=== PATIENT | female | born 1955 | race Caucasian/White ===

== ENCOUNTER 2019-06-04 16:32 | Emergency (ER) | payer OTHER, SELFPAY ==
[2019-06-04 16:35] VITALS: BP 166/86; PULSE 87; RESP 18; TEMP 36.3; O2SAT 98; BMI 26.2
--- NOTE | 2019-06-04 16:43 | XR_ITS ---
WS: [id number] XR chest 1V portable [id number] REASON FOR EXAM: cp FINDINGS: The chest heart mediastinum are normal. No active infiltrates. No pneumonia, pleural effusion, pulmonary edema, mass effect, or pneumothorax. No osseous abnormalities are seen. The hilum and apices are normal. XR/XR chest 1V portable [id number] IMPRESSION: Negative chest for active pathology.
--- NOTE | 2019-06-04 16:43 | ECG_ITS ---
Measurements Intervals [place] Rate: 86 P: 60 MN: 194 QRS: 24 QRSD: 88 T: 60 QT: 367 QTc: 439 SINUS RHYTHM LOW QRS VOLTAGE IN PRECORDIAL LEADS [QRS DEFLECTION < 1.0 mV IN CHEST LEADS] No previous ECG available for comparison Electronically Signed On 06-05-2019 8:03:40 CDT by Mark Moon [id number]
--- NOTE | 2019-06-04 16:46 | W.ED.CHESTPA ---
Documented by User: Guerline Stapleton MD 06/04/19 17:22 HPI - Chest Pain General: Chief Complaint: Chest Pain Stated Complaint: chest pain Time Seen by Provider: 06/04/19 16:35 Source: patient Mode of arrival: ambulatory History of Present Illness: HPI narrative: 64-year-old female who is very healthy and has no previous medical problems states roughly 1 hour ago she started having palpitations in her chest along with chest pain. She states this lasted roughly 20 minutes and is since resolved. She states she had a fit bit and took her heart rate and it was in the 160s. She states she felt like her heart was in a pound out of her chest and had a sharp pain in her chest with this. She denies any history of arrhythmias in the past. She states that it stopped suddenly after roughly 20 minutes. She denies any pain currently. She denies any shortness of breath. She denies any fevers. complaint: chest pain Onset (ago): hour(s) Timing of current episode: episodic Onset: during exertion Pain location: left chest Pain radiation: none Severity: mild Quality: sharp Relieving factors: nothing Exacerbating factors: nothing Associated symptoms: Reports palpitations; Deny abdominal pain, dyspnea, fever(s), nausea or vomiting Review of Systems Const: Denies: fever, chills, body aches or change in appetite Eyes: Denies: blurry vision or eye discomfort ENMT: Denies: throat pain or dental pain Card: Reports: chest pain and palpitations Resp: Denies: shortness of breath GI: Denies: abdominal pain, nausea, vomiting or diarrhea : Denies: painful urination Musc: Denies: neck pain or back pain Skin/Breast: Denies: rash Neuro: Denies: headache Psych: Denies: depression Scott/Lymph: Denies: easy bruising All/Imm: Denies: hives PFSH ED PFSH: Social History Smoking and tobacco status: former smoker Physical Exam Const: COMMON NORMALS: no apparent distress, oriented x3 and healthy appearing HENMT: COMMON NORMALS: normocephalic and head/scalp atraumatic HEAD & SCALP: normocephalic and atraumatic Eye: COMMON NORMALS: PERRL and EOMs intact bilaterally PUPIL: Yes PERRL Neck/C-Spine: COMMON NORMALS: full ROM and supple Chest: COMMONS NORMALS: inspection of chest normal and palpation of chest normal Resp: COMMON NORMALS: normal respiratory effort, no retractions, no use of accessory muscles and clear to auscultation bilaterally AUSCULTATION: clear to auscultation bilaterally Cardio: COMMON NORMALS: regular rate, regular rhythm and no murmurs RATE: regular rate RHYTHM: regular rhythm GI: COMMON NORMALS: normal to inspection, nondistended, normoactive bowel sounds, soft to palpation, non-tender and no masses PALPATION: Yes soft Extremity: COMMON NORMALS: normal to inspection and full ROM Neuro: COMMON NORMALS: oriented x3, moves all extremities and no focal motor deficits Psych: COMMON NORMALS: mental status grossly normal, thought process normal and cooperative THOUGHT PROCESS: normal thought process Skin: COMMON NORMALS: no rashes or lesions noted and no wounds GENERAL SKIN EXAM: no rashes or lesions noted Course Vital Signs: Vital signs: Vital Signs Temperature 97.4 F L 06/04/19 16:35 Pulse Rate 77 06/04/19 20:54 Respiratory Rate 17 06/04/19 20:54 Blood Pressure 106/67 06/04/19 20:54 Pulse Oximetry 98 06/04/19 20:54 MDM - Chest Pain MDM Narrative: Medical decision making narrative: Nenita presents here with chest pain and palpitations that have since resolved. From her history sounds like she either went into SVT or paroxysmal A. fib. Patient likely converted herself. The arrhythmia likely caused her pain. Her initial EKG here is normal. We will monitor her on a pump press operator and check initial and 2-hour troponin. Patient has no risk factors for coronary disease besides age. Patient's care turned over to Dr. Mendez at this time to follow labs. Lab Data: Labs: Lab Results 06/04/19 06/04/19 06/04/19 Range/Units 17:08 17:08 17:08 WBC 4.7 (4.0-10.0) 10^3/ uL RBC 4.28 (4.1-5.3) 10^6/u L Hgb 13.9 (11.5-15.3) g/dL Hct 41.7 (37.0-47.0) % MCV 97.4 (81-99) fL MCH 32.5 (28.0-34.0) pg MCHC 33.3 (30.0-36.0) g/dL RDW 12.4 (12.1-15.1) % Plt Count 282 (130-400) 10^3/c mm MPV 9.3 (7.4-10.4) fL Neut % (Auto) 59.5 % Lymph % (Auto) 31.5 % Chase % (Auto) 6.0 % Eos % (Auto) 2.6 % Baso % (Auto) 0.2 % Neut # (Auto) 2.8 (1.8-7.7) 10^3/u L Lymph # (Auto) 1.5 (0.8-4.8) 10^3/u L Chase # (Auto) 0.3 (0.2-0.9) 10^3/u L Eos # (Auto) 0.1 (0.0-0.8) 10^3/u L Baso # (Auto) 0.0 (0.0-0.1) 10^3/u L Nucleated RBC % (a uto) 0 % Nucleated RBCs # 0.0 /100WBC D-Dimer (0-0.59) ug/mIFE U Sodium 140 (136-145) mmol/L Potassium 4.3 (3.5-5.1) mmol/L Chloride 101 (98-107) mmol/L Carbon Dioxide 27 (22-29) mmol/L Anion Gap 16.3 (5-19) BUN 17 (8-23) mg/dL Creatinine 0.7 (0.5-0.9) mg/dL GFR Calculation 84.5 L (90-130) mL/min Glucose 108 (65-115) mg/dL Calculated Osmolal ity 287 (285-295) mOsm/k g Calcium 10.1 (8.5-10.5) mg/dL Magnesium (1.7-2.3) mg/dL Total Bilirubin 0.4 (0.15-1.2) mg/dL AST 23 (0-32) U/L ALT 18 (0-33) U/L Alkaline Phosphata se 75 (35-105) IU/L Troponin T Baselin e 8 (0-10) ng/mL Troponin T 120 Min standing rock (0-10) ng/mL Delta Troponin T (0-10) ABS# Total Protein 6.8 (6.6-8.7) g/dL Albumin 4.6 (3.5-5.2) g/dL Globulin 2.2 (1.3-4.6) g/dL TSH (0.27-4.20) uIU/ mL Urine Color (Yellow) Urine Appearance (CLEAR) Urine pH (5-7) Ur Specific Gravit y (1.005-1.030) Urine Protein (Negative) Urine Glucose (UA) (Normal) Urine Ketones (Negative) Urine Blood (Negative) Urine Nitrate (Negative) Urine Bilirubin (NEGATIVE) Urine Urobilinogen (Negative) mg/dL Ur Leukocyte Sharla ase (Negative) Urine RBC (0-2) /hpf Urine WBC (0-5) /hpf Ur Squamous Epith Cells (0-5) Urine Bacteria (NONE) 06/04/19 06/04/19 06/04/19 Range/Units 17:08 17:08 17:57 WBC (4.0-10.0) 10^3/ uL RBC (4.1-5.3) 10^6/u L Hgb (11.5-15.3) g/dL Hct (37.0-47.0) % MCV (81-99) fL MCH (28.0-34.0) pg MCHC (30.0-36.0) g/dL RDW (12.1-15.1) % Plt Count (130-400) 10^3/c mm MPV (7.4-10.4) fL Neut % (Auto) % Lymph % (Auto) % Chase % (Auto) % Eos % (Auto) % Baso % (Auto) % Neut # (Auto) (1.8-7.7) 10^3/u L Lymph # (Auto) (0.8-4.8) 10^3/u L Chase # (Auto) (0.2-0.9) 10^3/u L Eos # (Auto) (0.0-0.8) 10^3/u L Baso # (Auto) (0.0-0.1) 10^3/u L Nucleated RBC % (a uto) % Nucleated RBCs # /100WBC D-Dimer <= 0.27 (0-0.59) ug/mIFE U Sodium (136-145) mmol/L Potassium (3.5-5.1) mmol/L Chloride (98-107) mmol/L Carbon Dioxide (22-29) mmol/L Anion Gap (5-19) BUN (8-23) mg/dL Creatinine (0.5-0.9) mg/dL GFR Calculation (90-130) mL/min Glucose (65-115) mg/dL Calculated Osmolal ity (285-295) mOsm/k g Calcium (8.5-10.5) mg/dL Magnesium 2.4 H (1.7-2.3) mg/dL Total Bilirubin (0.15-1.2) mg/dL AST (0-32) U/L ALT (0-33) U/L Alkaline Phosphata se (35-105) IU/L Troponin T Baselin e (0-10) ng/mL Troponin T 120 Min standing rock (0-10) ng/mL Delta Troponin T (0-10) ABS# Total Protein (6.6-8.7) g/dL Albumin (3.5-5.2) g/dL Globulin (1.3-4.6) g/dL TSH 2.61 (0.27-4.20) uIU/ mL Urine Color Straw (Yellow) Urine Appearance Clear (CLEAR) Urine pH 7 (5-7) Ur Specific Gravit y 1.005 (1.005-1.030) Urine Protein Neg (Negative) Urine Glucose (UA) Norm (Normal) Urine Ketones Negative (Negative) Urine Blood Neg (Negative) Urine Nitrate Negative (Negative) Urine Bilirubin Neg (NEGATIVE) Urine Urobilinogen Norm (Negative) mg/dL Ur Leukocyte Sharla ase Negative (Negative) Urine RBC None (0-2) /hpf Urine WBC None (0-5) /hpf Ur Squamous Epith Cells None (0-5) Urine Bacteria Trace (NONE) 06/04/19 Range/Units 19:08 WBC (4.0-10.0) 10^3/ uL RBC (4.1-5.3) 10^6/u L Hgb (11.5-15.3) g/dL Hct (37.0-47.0) % MCV (81-99) fL MCH (28.0-34.0) pg MCHC (30.0-36.0) g/dL RDW (12.1-15.1) % Plt Count (130-400) 10^3/c mm MPV (7.4-10.4) fL Neut % (Auto) % Lymph % (Auto) % Chase % (Auto) % Eos % (Auto) % Baso % (Auto) % Neut # (Auto) (1.8-7.7) 10^3/u L Lymph # (Auto) (0.8-4.8) 10^3/u L Chase # (Auto) (0.2-0.9) 10^3/u L Eos # (Auto) (0.0-0.8) 10^3/u L Baso # (Auto) (0.0-0.1) 10^3/u L Nucleated RBC % (a uto) % Nucleated RBCs # /100WBC D-Dimer (0-0.59) ug/mIFE U Sodium (136-145) mmol/L Potassium (3.5-5.1) mmol/L Chloride (98-107) mmol/L Carbon Dioxide (22-29) mmol/L Anion Gap (5-19) BUN (8-23) mg/dL Creatinine (0.5-0.9) mg/dL GFR Calculation (90-130) mL/min Glucose (65-115) mg/dL Calculated Osmolal ity (285-295) mOsm/k g Calcium (8.5-10.5) mg/dL Magnesium (1.7-2.3) mg/dL Total Bilirubin (0.15-1.2) mg/dL AST (0-32) U/L ALT (0-33) U/L Alkaline Phosphata se (35-105) IU/L Troponin T Baselin e (0-10) ng/mL Troponin T 120 Min standing rock 12.45 H (0-10) ng/mL Delta Troponin T 4.45 (0-10) ABS# Total Protein (6.6-8.7) g/dL Albumin (3.5-5.2) g/dL Globulin (1.3-4.6) g/dL TSH (0.27-4.20) uIU/ mL Urine Color (Yellow) Urine Appearance (CLEAR) Urine pH (5-7) Ur Specific Gravit y (1.005-1.030) Urine Protein (Negative) Urine Glucose (UA) (Normal) Urine Ketones (Negative) Urine Blood (Negative) Urine Nitrate (Negative) Urine Bilirubin (NEGATIVE) Urine Urobilinogen (Negative) mg/dL Ur Leukocyte Sharla ase (Negative) Urine RBC (0-2) /hpf Urine WBC (0-5) /hpf Ur Squamous Epith Cells (0-5) Urine Bacteria (NONE) Imaging Data^: CXR: Attestation: I personally reviewed and interpreted this imaging study as follows: Radiologist's impression: [address] [address] XRay Report Signed Patient: Nenita Leger Unit #: [id number] : [id number] Age/Sex: 64 / F ADM Date: 06/04/19 Loc: ER Room/Bed: Attending Dr: Ordering Provider/Ordering MD: Guerline Stapleton MD Date of Service: 06/04/19 Procedure(s): XR chest 1V portable [id number] Accession Number(s): [id number] Report Number: [id number] WS: [id number] XR chest 1V portable [id number] REASON FOR EXAM: cp FINDINGS: The chest heart mediastinum are normal. No active infiltrates. No pneumonia, pleural effusion, pulmonary edema, mass effect, or pneumothorax. No osseous abnormalities are seen. The hilum and apices are normal. EKG Data^: EKG 1: Attestation: I personally reviewed and interpreted this EKG as follows: EKG interpretation date: 06/04/19 EKG interpretation time: 16:44 Interpretation: nsr hr [address] or t wave abnormalities qrs 88 qtc 410 Discharge Plan Discharge Patient Disposition: Left Against Medical Advice Clinical Impression: Palpitations Chest pain Qualifiers: Chest pain type: unspecified Qualified Code(s): R07.9 - Chest pain, unspecified Condition: Stable Prescriptions: New aspirin 325 mg tablet,delayed release (DR/EC) 325 mg PO DAILY Qty: 30 RF: 0 No Action Multiple Vitamins Tablet See Rx Instructions .ROUTE .COMPLEX RF: 0 hydrocortisone 2.5 % cream 1 applic TOPICAL BID RF: 0 potassium gluconate 595 mg (99 mg) Tablet See Rx Instructions .ROUTE .COMPLEX RF: 0 Vitamin B-12 1 tab PO EVERY OTHER DAY RF: 0 Vitamin D3 1 tab PO DAILY RF: 0 Discharge Orders: Discharge Order (Routine); Ordered 06/04/19 Ordered By: Mariela Theodore Referrals: Cathy Meléndez MD [Physician] - 1-3 days Discharge Diet: Low Cholesterol Discharge Activity: Increase activity as tolerated Patient Instructions: Chest Pain (ED) Activity Restrictions/Additional Instructions: You're leaving AGAINST MEDICAL ADVICE and are at risk for or severe permanent disability by doing so. You are more than welcome to return at any time for recheck and for further evaluation and care suture change you change your mind. I have encouraged you and offered to admit you to the hospital for formal cardiac rule out and cardiology consultation but you have refused. If you change your mind or your symptoms return in any way you are more than welcome to return to the ER for recheck. Stand Alone Forms: Against Medical Advice Discharge Date/Time: 06/04/19 20:57 Sign Out Sign Out Data: Patient Sign Out occurred on 06/04/19 at 17:22. Patient's care was discussed, and care was transferred from to ARIAS Giang. Coding Level of Care Code ED Administrative Support Technician for Chg Fwd Exam Comprehensive Documented by User: Mariela Theodore 06/04/19 23:47 HPI - Chest Pain General: Chief Complaint: Chest Pain Stated Complaint: chest pain Time Seen by Provider: 06/04/19 16:35 [facility] ED PFS: Social History Smoking and tobacco status: former smoker Course ED course: 1899 - EKGs were reviewed with Dr. Meléndez. I expressed him my concern about the inverted T wave in V2. I reviewed the entire history and case with him. He thinks this is likely due to an incomplete right bundle branch block. Based upon this he does not feel the patient needs to be admitted for cardiac rule out or stress testing but can follow-up with him in the office for outpatient Holter monitor. Vital Signs: Vital signs: Vital Signs Temperature 97.4 F L 03/20/20 16:35 Pulse Rate 77 06/04/19 20:54 Respiratory Rate 17 06/04/19 20:54 Blood Pressure 106/67 06/04/19 20:54 Pulse Oximetry 98 06/04/19 20:54 MDM - Chest Pain MDM Narrative: Medical decision making narrative: 1800 -care assumed by me at change of shift from Dr. Stapleton. Please see his portion of this note for his history, physical exam and medical decision-making notes. Patient relates to me that she has 2 episodes the second being today of rapid onset palpitations. Symptoms lasted less than 30 minutes. They were abrupt in onset and cessation. The patient denies any other symptoms such as chest pain with exertion, dyspnea on exertion, syncope or near syncope. Her other episode she had completely worked up in [place] and no cause could be found. Patient is currently feeling much better. Initial laboratory evaluation and her initial 2 EKGs are normal. We will continue with evaluation here and I will add on a d-dimer. Patients HEART Score is a 2. 2040 -I have shared with the patient the change in her EKGs as well as her slight elevation of her troponin test. I have informed her I believe it would be safest if she stayed in the hospital for formal rule out and a cardiology consult but she declines. She states this is just like everything that happened in [place] and she feels that she will be fine at home. She understands that I have informed her a heart problem can be life-threatening and it is possible if she goes home she could ultimately but she feels comfortable doing so and would like to go home. She understands that she is welcome to return at any time. She will go ahead and take aspirin daily until she is seen by Dr. Meléndez. I did review the case again with Dr. Meléndez and he is understanding of the patient's wishes and he will work to try to see the patient on Friday for recheck. Lab Data: Attestation: I reviewed the patient's lab results. Labs: Lab Results 06/04/19 06/04/19 06/04/19 Range/Units 17:08 17:08 17:08 WBC 4.7 (4.0-10.0) 10^3/ uL RBC 4.28 (4.1-5.3) 10^6/u L Hgb 13.9 (11.5-15.3) g/dL Hct 41.7 (37.0-47.0) % MCV 97.4 (81-99) fL MCH 32.5 (28.0-34.0) pg MCHC 33.3 (30.0-36.0) g/dL RDW 12.4 (12.1-15.1) % Plt Count 282 (130-400) 10^3/c mm MPV 9.3 (7.4-10.4) fL Neut % (Auto) 59.5 % Lymph % (Auto) 31.5 % Chase % (Auto) 6.0 % Eos % (Auto) 2.6 % Baso % (Auto) 0.2 % Neut # (Auto) 2.8 (1.8-7.7) 10^3/u L Lymph # (Auto) 1.5 (0.8-4.8) 10^3/u L Chase # (Auto) 0.3 (0.2-0.9) 10^3/u L Eos # (Auto) 0.1 (0.0-0.8) 10^3/u L Baso # (Auto) 0.0 (0.0-0.1) 10^3/u L Nucleated RBC % (a uto) 0 % Nucleated RBCs # 0.0 /100WBC D-Dimer (0-0.59) ug/mIFE U Sodium 140 (136-145) mmol/L Potassium 4.3 (3.5-5.1) mmol/L Chloride 101 (98-107) mmol/L Carbon Dioxide 27 (22-29) mmol/L Anion Gap 16.3 (5-19) BUN 17 (8-23) mg/dL Creatinine 0.7 (0.5-0.9) mg/dL GFR Calculation 84.5 L (90-130) mL/min Glucose 108 (65-115) mg/dL Calculated Osmolal ity 287 (285-295) mOsm/k g Calcium 10.1 (8.5-10.5) mg/dL Magnesium (1.7-2.3) mg/dL Total Bilirubin 0.4 (0.15-1.2) mg/dL AST 23 (0-32) U/L ALT 18 (0-33) U/L Alkaline Phosphata se 75 (35-105) IU/L Troponin T Baselin e 8 (0-10) ng/mL Troponin T 120 Min standing rock (0-10) ng/mL Delta Troponin T (0-10) ABS# Total Protein 6.8 (6.6-8.7) g/dL Albumin 4.6 (3.5-5.2) g/dL Globulin 2.2 (1.3-4.6) g/dL TSH (0.27-4.20) uIU/ mL Urine Color (Yellow) Urine Appearance (CLEAR) Urine pH (5-7) Ur Specific Gravit y (1.005-1.030) Urine Protein (Negative) Urine Glucose (UA) (Normal) Urine Ketones (Negative) Urine Blood (Negative) Urine Nitrate (Negative) Urine Bilirubin (NEGATIVE) Urine Urobilinogen (Negative) mg/dL Ur Leukocyte Sharla ase (Negative) Urine RBC (0-2) /hpf Urine WBC (0-5) /hpf Ur Squamous Epith Cells (0-5) Urine Bacteria (NONE) 06/04/19 06/04/19 06/04/19 Range/Units 17:08 17:08 17:57 WBC (4.0-10.0) 10^3/ uL RBC (4.1-5.3) 10^6/u L Hgb (11.5-15.3) g/dL Hct (37.0-47.0) % MCV (81-99) fL MCH (28.0-34.0) pg MCHC (30.0-36.0) g/dL RDW (12.1-15.1) % Plt Count (130-400) 10^3/c mm MPV (7.4-10.4) fL Neut % (Auto) % Lymph % (Auto) % Chase % (Auto) % Eos % (Auto) % Baso % (Auto) % Neut # (Auto) (1.8-7.7) 10^3/u L Lymph # (Auto) (0.8-4.8) 10^3/u L Chase # (Auto) (0.2-0.9) 10^3/u L Eos # (Auto) (0.0-0.8) 10^3/u L Baso # (Auto) (0.0-0.1) 10^3/u L Nucleated RBC % (a uto) % Nucleated RBCs # /100WBC D-Dimer <= 0.27 (0-0.59) ug/mIFE U Sodium (136-145) mmol/L Potassium (3.5-5.1) mmol/L Chloride (98-107) mmol/L Carbon Dioxide (22-29) mmol/L Anion Gap (5-19) BUN (8-23) mg/dL Creatinine (0.5-0.9) mg/dL GFR Calculation (90-130) mL/min Glucose (65-115) mg/dL Calculated Osmolal ity (285-295) mOsm/k g Calcium (8.5-10.5) mg/dL Magnesium 2.4 H (1.7-2.3) mg/dL Total Bilirubin (0.15-1.2) mg/dL AST (0-32) U/L ALT (0-33) U/L Alkaline Phosphata se (35-105) IU/L Troponin T Baselin e (0-10) ng/mL Troponin T 120 Min standing rock (0-10) ng/mL Delta Troponin T (0-10) ABS# Total Protein (6.6-8.7) g/dL Albumin (3.5-5.2) g/dL Globulin (1.3-4.6) g/dL TSH 2.61 (0.27-4.20) uIU/ mL Urine Color Straw (Yellow) Urine Appearance Clear (CLEAR) Urine pH 7 (5-7) Ur Specific Gravit y 1.005 (1.005-1.030) Urine Protein Neg (Negative) Urine Glucose (UA) Norm (Normal) Urine Ketones Negative (Negative) Urine Blood Neg (Negative) Urine Nitrate Negative (Negative) Urine Bilirubin Neg (NEGATIVE) Urine Urobilinogen Norm (Negative) mg/dL Ur Leukocyte Sharla ase Negative (Negative) Urine RBC None (0-2) /hpf Urine WBC None (0-5) /hpf Ur Squamous Epith Cells None (0-5) Urine Bacteria Trace (NONE) 06/04/19 Range/Units 19:08 WBC (4.0-10.0) 10^3/ uL RBC (4.1-5.3) 10^6/u L Hgb (11.5-15.3) g/dL Hct (37.0-47.0) % MCV (81-99) fL MCH (28.0-34.0) pg MCHC (30.0-36.0) g/dL RDW (12.1-15.1) % Plt Count (130-400) 10^3/c mm MPV (7.4-10.4) fL Neut % (Auto) % Lymph % (Auto) % Chase % (Auto) % Eos % (Auto) % Baso % (Auto) % Neut # (Auto) (1.8-7.7) 10^3/u L Lymph # (Auto) (0.8-4.8) 10^3/u L Chase # (Auto) (0.2-0.9) 10^3/u L Eos # (Auto) (0.0-0.8) 10^3/u L Baso # (Auto) (0.0-0.1) 10^3/u L Nucleated RBC % (a uto) % Nucleated RBCs # /100WBC D-Dimer (0-0.59) ug/mIFE U Sodium (136-145) mmol/L Potassium (3.5-5.1) mmol/L Chloride (98-107) mmol/L Carbon Dioxide (22-29) mmol/L Anion Gap (5-19) BUN (8-23) mg/dL Creatinine (0.5-0.9) mg/dL GFR Calculation (90-130) mL/min Glucose (65-115) mg/dL Calculated Osmolal ity (285-295) mOsm/k g Calcium (8.5-10.5) mg/dL Magnesium (1.7-2.3) mg/dL Total Bilirubin (0.15-1.2) mg/dL AST (0-32) U/L ALT (0-33) U/L Alkaline Phosphata se (35-105) IU/L Troponin T Baselin e (0-10) ng/mL Troponin T 120 Min standing rock 12.45 H (0-10) ng/mL Delta Troponin T 4.45 (0-10) ABS# Total Protein (6.6-8.7) g/dL Albumin (3.5-5.2) g/dL Globulin (1.3-4.6) g/dL TSH (0.27-4.20) uIU/ mL Urine Color (Yellow) Urine Appearance (CLEAR) Urine pH (5-7) Ur Specific Gravit y (1.005-1.030) Urine Protein (Negative) Urine Glucose (UA) (Normal) Urine Ketones (Negative) Urine Blood (Negative) Urine Nitrate (Negative) Urine Bilirubin (NEGATIVE) Urine Urobilinogen (Negative) mg/dL Ur Leukocyte Sharla ase (Negative) Urine RBC (0-2) /hpf Urine WBC (0-5) /hpf Ur Squamous Epith Cells (0-5) Urine Bacteria (NONE) Imaging Data^: CXR: My impression: No acute cardiopulmonary findings. EKG Data^: EKG 1: Attestation: I personally reviewed and interpreted this EKG as follows: EKG interpretation date: 06/04/19 EKG interpretation time: 16:44 Interpretation: Normal sinus rhythm 86 beats a minute, normal intervals, no blocks, no acute ST-T wave changes. EKG 2: Attestation: I personally reviewed and interpreted this EKG as follows: EKG interpretation date: 06/04/19 EKG interpretation time: 16:50 Interpretation: Normal sinus rhythm at 76 beats a minute, no acute ST or T wave changes. EKG 3: Attestation: I personally reviewed and interpreted this EKG as follows: EKG interpretation date: 06/04/19 EKG interpretation time: 18:47 Interpretation: Normal sinus rhythm at 65 beats a minute, normal intervals, no blocks, no acute ST-T wave changes. Incomplete right bundle branch block. Discharge Plan Discharge Patient Disposition: Left Against Medical Advice Clinical Impression: Palpitations Chest pain Qualifiers: Chest pain type: unspecified Qualified Code(s): R07.9 - Chest pain, unspecified Condition: Stable Prescriptions: New aspirin 325 mg tablet,delayed release (DR/EC) 325 mg PO DAILY Qty: 30 RF: 0 No Action Multiple Vitamins Tablet See Rx Instructions .ROUTE .COMPLEX RF: 0 hydrocortisone 2.5 % cream 1 applic TOPICAL BID RF: 0 potassium gluconate 595 mg (99 mg) Tablet See Rx Instructions .ROUTE .COMPLEX RF: 0 Vitamin B-12 1 tab PO EVERY OTHER DAY RF: 0 Vitamin D3 1 tab PO DAILY RF: 0 Discharge Orders: Discharge Order (Routine); Ordered 06/04/19 Ordered By: Mariela Theodore Referrals: Cathy Meléndez MD [Physician] - 1-3 days Discharge Diet: Low Cholesterol Discharge Activity: Increase activity as tolerated Patient Instructions: Chest Pain (ED) Activity Restrictions/Additional Instructions: You're leaving AGAINST MEDICAL ADVICE and are at risk for or severe permanent disability by doing so. You are more than welcome to return at any time for recheck and for further evaluation and care suture change you change your mind. I have encouraged you and offered to admit you to the hospital for formal cardiac rule out and cardiology consultation but you have refused. If you change your mind or your symptoms return in any way you are more than welcome to return to the ER for recheck. Stand Alone Forms: Against Medical Advice Discharge Date/Time: 06/04/19 20:57 Sign Out Sign Out Data: Patient Sign Out occurred on 06/04/19 at 17:22. Patient's care was discussed, and care was transferred from to ARIAS Giang. Coding Level of Care Code ED Administrative Support Technician for Chg Fwd Exam Comprehensive
[2019-06-04 17:24] LABS: Basophils % 0.2 %; Eosinophils # 0.1 10^3/uL (0.0-0.8); Eosinophils % 2.6 %; Hematocrit 41.7 % (37.0-47.0); Hemoglobin 13.9 g/dL (11.5-15.3); Lymphocytes # 1.5 10^3/uL (0.8-4.8); Lymphocytes % 31.5 %; Mean Corpuscular HGB Conc 33.3 g/dL (30.0-36.0); Mean Corpuscular Hemoglobin 32.5 pg (28.0-34.0); Mean Corpuscular Volume 97.4 fL (81-99); Mean Platelet Volume 9.3 fL (7.4-10.4); Monocytes # 0.3 10^3/uL (0.2-0.9); Neutrophils # 2.8 10^3/uL (1.8-7.7); Neutrophils % 59.5 %; Nucleated Red Blood Cells % 0 %; Platelet Count 282 10^3/cmm (130-400); Red Blood Count 4.28 10^6/uL (4.1-5.3); Red Cell Distribution Width 12.4 % (12.1-15.1); White Blood Count 4.7 10^3/uL (4.0-10.0)
[2019-06-04 17:49] LABS: Troponin(5th) Baseline 8 ng/mL (0-10)
[2019-06-04 18:01] LABS: Alanine Aminotransferase 18 U/L (0-33); Albumin Level 4.6 g/dL (3.5-5.2); Alkaline Phosphatase 75 IU/L (35-105); Anion Gap 16.3 (5-19); Aspartate Amino Transferase 23 U/L (0-32); Blood Urea Nitrogen 17 mg/dL (8-23); Calcium 10.1 mg/dL (8.5-10.5); Carbon Dioxide 27 mmol/L (22-29); Chloride 101 mmol/L (98-107); Globulin 2.2 g/dL (1.3-4.6); Glomerular Filtration Rate 84.5 mL/min (90-130); Glucose 108 mg/dL (65-115); Osmolality Calculated 287 mOsm/kg (285-295); Potassium 4.3 mmol/L (3.5-5.1); Sodium 140 mmol/L (136-145); Total Bilirubin 0.4 mg/dL (0.15-1.2); Total Protein 6.8 g/dL (6.6-8.7)
[2019-06-04 18:41] LABS: Magnesium 2.4 mg/dL (1.7-2.3); Thyroid Stimulating Hormone 2.61 uIU/mL (0.27-4.20)
--- NOTE | 2019-06-04 18:43 | ECG_ITS ---
Measurements Intervals Arabi Rate: 65 P: 58 IL: 198 QRS: 8 QRSD: 98 T: 40 QT: 397 QTc: 415 SINUS RHYTHM POSSIBLE LEFT ATRIAL ENLARGEMENT [-0.1mV P WAVE IN V1/V2] LOW QRS VOLTAGE IN PRECORDIAL LEADS [QRS DEFLECTION < 1.0 mV IN CHEST LEADS] No previous ECG available for comparison Electronically Signed On 06-05-2019 8:10:49 CDT by Mark Moon [email or web address]
[2019-06-04 18:44] LABS: Bilirubin Urine Neg (NEGATIVE); Blood Urine Neg (Negative); Glucose Urine UA Norm (Normal); Ketones Urine Negative (Negative); Leukocyte Esterase Urine Negative (Negative); Nitrate Urine Negative (Negative); Protein Urine Neg (Negative); Specific Gravity, Urine 1.005 (1.005-1.030); Urine Appearance Clear (CLEAR); Urine Color Straw (Yellow); Urobilinogen Urine Norm (Negative); pH Urine 7 (5-7)
[2019-06-04 18:47] LABS: D Dimer <= 0.27 ug/mIFEU (0-0.59)
[2019-06-04 18:58] LABS: Add Urine Culture? No; Bacteria Urine TRACE
[2019-06-04 20:13] LABS: Troponin 5 2HR 12.45 ng/mL (0-10); Troponin 5 2HR Delta 4.45 ABS# (0-10)
[2019-06-04] MEDS: aspirin 325 mg Tablet PO (20:43)
[2019-06-04 20:54] VITALS: BP 106/67; PULSE 77; RESP 17; O2SAT 98
== END 2019-06-04 20:57 | disposition left against medical advice (07) ==
PROVIDERS: Emergency Medicine; Emergency Provider Emergency Medicine
DX: R00.2 Palpitations (principal); R07.9 Chest pain, unspecified; Z87.891 Personal history of nicotine dependence; Z53.29 Procedure and treatment not carried out because of patient's decision for other reasons
CPT/HCPCS: 12345; 36415; 71045; 80053; 81001; 83735; 84443; 84484; 85025; 85378; 93005; 93010; 99282; 99284; A9270

== ENCOUNTER 2019-08-26 14:47 | Observation (INO) | payer OTHER, SELFPAY ==
[2019-08-26 15:00] VITALS: BP 117/82; PULSE 82; RESP 14; TEMP 36.8; O2SAT 97; BMI 26.1
--- NOTE | 2019-08-26 15:04 | XR_ITS ---
WS: [id number] Right shoulder, 3 views, 08/26/2019 Clinical Data: FALL Comparison: None. Findings: There is a fracture of the humeral neck with a medial dislocation of the humeral shaft. There is rota tion of the humeral head although it still remains within the glenoid fossa. There is a large distanc e between the acromion and humeral head which may represent blood in the joint space. XR/XR shoulder RT min 2V* [id number] Impression: Fracture of the right humeral neck with a comminuted component involving the la teral aspect of the right humeral head.
--- NOTE | 2019-08-26 16:38 | ED_ITS ---
Documented by User: ARIAS Cain 08/27/19 19:44 HPI - Fall General: Chief Complaint: Fall Stated Complaint: r arm pain Time Seen by Provider: 08/26/19 16:17 Source: patient Mode of arrival: ambulatory Limitations: no limitations History of Present Illness: HPI Narrative: Patient is a 64-year-old female who presents to ED today with complaints of right shoulder pain after falling off of a horse while riding trails. Patient denies any other injury sustained during the fall. She denies numbness, tingling, changes of sensation to the right upp er extremity. Patient has been ambulating without difficulty since the event. Denies striking her head, LOC, neck or back pain. MD complaint: fall Onset (ago): hour(s) Fall from: other (off horse) Fall witnessed: yes, by bystander Place fall occurred: other (outdoors/horse trails ) Loss of consciousness: None Prolonged down time: no Symptoms prior to fall: none Location of injury - extremities: Right: shoulder Associated symptoms-after fall: Denies abdominal pain, chest pain or neck pain Review of Systems Eyes: Denies: change in vision, blurry vision, floaters or seeing flashes Card: Denies: chest pain Resp: Denies: dyspnea GI: Denies: abdominal pain Musc: Reports: joint pain (R shoulder) and joint swelling (R shoulder ); Denies: neck pain, back pain, extremity pain or extremity swelling Neuro: Denies: numbness in extremities or sensory changes PFS ED PFSH: Surgical History (Updated 08/26/19 @ 18:33 by Simon Hall MD) History of appendectomy Family History (Updated 06/08/19 @ 11:09 by Shiloh Esquivel MD) Father Hypertension Stroke Aortic aneurysm Family/Other CAD (coronary artery disease), Onset Age: 53 massive heart attack Hypertension Social History (Updated 08/26/19 @ 18:33 by iSmon Hall MD) Smoking and tobacco status: never smoked Alcohol intake: current Alcohol intake frequency: holidays/special occasions only Substance/Drug Use: never Physical Exam Const: COMMON NORMALS: no acute distress, average body habitus, patient oriented x3, no limitations, healthy appearing, alert and well nourished ORIENTATION/CONSCIOUSNESS: Yes oriented to person, Yes oriented to place and Yes oriented to time HENMT: COMMON NORMALS: normocephalic and atraumatic HEAD & SCALP: normal to inspection, normocephalic and atraumatic Neck/C-Spine: COMMON NORMALS: full ROM CERVICAL SPINE: Yes cervical ROM normal, No pain with cervical ROM and No Cervical spine tenderness Chest: COMMONS NORMALS: normal inspection of the chest and normal palpation of entire chest wall Back/Pelvis: COMMON NORMALS: thoracic and lumbar spine normal to inspection, no thoracic nor lumbar tenderness and thoraco-lumbar ROM normal Extremity: GENERAL: Yes normal exam except as noted OTHER: obvious deformity and swelling noted to R shoulder joint; limited ROM due to pain; pt is NV intact Neuro: EDYTA COMA SCALE: document GCS findings Edyta coma scale eye openin g: Spontaneous Edyta coma scale verbal response: Orientated [place] coma scale motor response: Obey commands Edyta coma scale total score: 15 COMMON NORMALS: patient oriented x3, no sensory deficits noted and gait normal SENSORIUM/ORIENTATION: Yes alert, Yes oriented to person, Yes oriented to place and Yes oriented to time Skin: COMMON NORMALS: no rashes or lesions noted GENERAL SKIN EXAM: no rashes or lesions noted Course Consultations: Consultation #1: Dr. Lpóez-currently in OR but stated he will pull up films and call back recommends CT scan with 3D reconstruction and admit to hospitalist and he will take to OR tomorrow Vital Signs: Vital signs: Vital Signs Temperature 97.5 F L 08/27/19 17:55 Pulse Rate 68 08/27/19 19:22 Respiratory Rate 16 08/27/19 18:28 Blood Pressure 151/77 08/27/19 19:22 Pulse Oximetry 97 08/27/19 19:22 MDM - Fall MDM Narrative: Medical decision making narrative: Spoke to Dr. Rodriguez about patient and he will speak to hospitalist for admission. Imaging Data^: R shoulder XR: Radiologist's impression: [address] [place] [address] XRay Report Signed Patient: Nenita Leger Unit #: [id number] : [id number] Age/Sex: 64 / F ADM Date: 08/26/19 Loc: ER Room/Bed: Attending Dr: Ordering Provider/Ordering MD: Radha Rodrigeuz MD, [facility] [place] Date of Service: 08/26/19 Procedure(s): XR shoulder RT min 2V* [id number] Accession Number(s): [id number] Report Number: [id number] WS: [id number] Right shoulder, 3 views, 08/26/2019 Clinical Data: FALL Comparison: None. Findings: There is a fracture of the humeral neck with a medial dislocation of the humeral shaft. There is rotation of the humeral head although it still remains within the glenoid fossa. There is a large distance between the acromion and humeral head which may represent blood in the joint space. XR/XR shoulder RT min 2V* [id number] Impression: Fracture of the right humeral neck with a comminuted component involving the lateral aspect of the right humeral head. Dictated By: Verena Alexander MD Signed By: Verena Alexander MD Signed Date/Time: 08/26/191538 DD/ 37 Discharge Plan Discharge Patient Disposition: Admitted As Inpatient Admit Provider: Simon Hall Clinical Impression: Fracture of neck of humerus Qualifiers: Encounter type: initial encounter Fracture type: closed Laterality: right Qualified Code(s): S42.211A - Unspecified displaced fracture of surgical neck of right humerus, initial encounter for closed fracture Condition: Stable Discharge Date/Time: 08/26/19 20:19 Sign Out Sign Out Data: Patient Sign Out occurred on 08/26/19 at 18:24. Patient's care was discussed, and care was transferred from to Mariela Theodore. Coding Level of Care Code ED Inspector Casing for Chg Fwd Exam Comprehensive Documented by User: Mariela Theodore 08/27/19 05:55 HPI - Fall General: Chief Complaint: Fall Stated Complaint: r arm pain Time Seen by Provider: 08/26/19 16:17 PFSH ED PFSH: Surgical History (Updated 08/26/19 @ 18:33 by Simon Hall MD) History of appendectomy Family History (Updated 06/08/19 @ 11:09 by Shiloh Esquivel MD) Father Hypertension Stroke Aortic aneurysm Family/Other CAD (coronary artery disease), Onset Age: 53 massive heart attack Hypertension Social History (Updated 08/26/19 @ 18:33 by Simon Hall MD) Smoking and tobacco status: never smoked Alcohol intake: current Alcohol intake frequency: holidays/special occasions only Substance/Drug Use: never Course Vital Signs: Vital signs: Vital Signs Temperature 97.5 F L 08/27/19 17:55 Pulse Rate 68 08/27/19 19:22 Respiratory Rate 16 08/27/19 18:28 Blood Pressure 151/77 08/27/19 19:22 Pulse Oximetry 97 08/27/19 19:22 Discharge Plan Discharge Patient Disposition: Admitted As Inpatient Admit Provider: Simon Hall Clinical Impression: Fracture of neck of humerus Qualifiers: Encounter type: initial encounter Fracture type: closed Laterality: right Qualified Code(s): S42.211A - Unspecified displaced fracture of surgical neck of right humerus, initial encounter for closed fracture Condition: Stable Discharge Date/Time: 08/26/19 20:19 Sign Out Sign Out Data: Patient Sign Out occurred on 08/26/19 at 18:24. Patient's care was discussed, and care was transferred from to Mariela Theodore. Coding Level of Care Code ED Inspector Casing for [place] Fwd Exam Comprehensive
[2019-08-26] MEDS: ondansetron 2 mg/ML SDV 2 mL 4 MG IM (17:06)
[2019-08-26] MEDS: morphine 4 mg/mL SDV 1 mL IM (17:07)
[2019-08-26 17:11] VITALS: BP 113/76; PULSE 66; O2SAT 100
--- NOTE | 2019-08-26 17:36 | CTR_ITS ---
PROCEDURE INFORMATION: Exam: CT Right Upper Extremity Without Contrast, Shoulder Exam date and time: 08/26/2019 6:02 PM Age: 64 years old Clinical indication: Injury or trauma; Initial encounter; Blunt trauma (contusions or hematomas; Shoulder and arm, upper; Right; Patient HX: Fell off a horse R humerus FX; Additional info: Fracture/trauma; 3d reconstruction TECHNIQUE: Imaging protocol: CT of the Right upper extremity without contrast was performed. Exam focused on the shoulder. Radiation optimization: All CT scans at this facility use at least one of these dose optimization techniques: automated exposure control; mA and/or kV adjustment per patient size (includes targeted exams where dose is matched to clinical indication); or iterative reconstruction. COMPARISON: No relevant prior studies available. RADIATION DOSE METRICS: Total DLP: 1293.44 mGy-cm FINDINGS: Bones/joints: There is a transverse fracture of the surgical neck of the right humerus with some anterior displacement of the shaft by approximately half its with and some posterior angulation of the humeral head. Fracture also partly involves the greater tuberosity. Glenohumeral joint is intact and there is no fracture involving the scapula or glenoid. Right clavicle is also intact. Soft tissues: Normal. Lungs: There are some calcified granulomas in the right upper lobe in keeping with old granulomatous disease. CT/CT shoulder RT wo con* [id number] IMPRESSION: Fracture of the neck of right humerus. Radiation Dose CTDIVOL = (mGy): DLP = 1293.44 (mGy-cm)
--- NOTE | 2019-08-26 18:31 | PM.HP ---
Providers/Chief Complaint Admitting Physician: Simon Hall MD Chief Complaint: r arm pain History of Present Illness Nenita Leger is a 64 year old female with a past medical history of SVT, who presents [facility] after a fall from a horse and right shoulder pain. Patient states that she is from [place], she moved down to [place] a few years ago with friends, she is retired, enjoys riding horses, enjoys the outdoors, has done outdoorsy activities such as walking [employer] [place], is quite physically active, denies chest pain, denies shortness of breath, denies history of pulmonary embolism, denies a history of DVT, denies any history of issues with anesthesia, denies any recent travel, no exposure to COVID-19, no cough, no fevers, denies history of heart failure, denies history of renal failure, denies history of hypertension, denies history of diabetes In the ER patient was found to have a right humeral fracture, hospitalist team was consulted for medical management Review of Systems Const: Denies: fever(s), chills, fatigue or malaise Eyes: Denies: change in vision or blurry vision ENMT: Denies: nasal congestion Resp: Denies: dyspnea, productive cough, non-productive cough or wheezing GI: Denies: abdominal pain, nausea, vomiting, hematemesis, diarrhea, constipation, hematochezia or melena : Denies: flank pain, dysuria or urinary frequency Musc: Denies: neck pain or back pain Skin/Breast: Denies: rash Neuro: Denies: headache(s), dizziness or vertigo Psych: Denies: anxiety or depression Endo: Denies: polyuria or polydipsia Medications/Allergies Home Medications Medication Instructions Recorded Confirmed Last Taken Type multivitamin [Multiple Vitamins] See Rx Instructions .ROUTE .COMPLEX 06/04/19 08/26/19 08/26/19 History Soy Isoflavones 1 tab PO EVERY OTHER DAY 08/26/19 08/26/19 Unknown History cholecalciferol (vitamin D3) 50 mcg PO DAILY 08/26/19 08/26/19 Unknown History [Vitamin D3] Allergies Allergy/AdvReac Type Severity Reaction Status Date / Time Tetracyclines Allergy ADR-Gastrointestinal Verified 06/04/19 16:44 Upset PFSH Acute PFSH: Surgical History (Updated 08/26/19 @ 18:33 by Simon Hall MD) History of appendectomy Family History (Updated 06/08/19 @ 11:09 by Shiloh Esquivel MD) Father Hypertension Stroke Aortic aneurysm Family/Other CAD (coronary artery disease), Onset Age: 53 massive heart attack Hypertension Social History (Updated 08/26/19 @ 18:33 by Simon Hall MD) Smoking and tobacco status: never smoked Alcohol intake: current Alcohol intake frequency: holidays/special occasions only Substance/Drug Use: never Vitals/I&O/Wt Last Vital Signs Temp 98.2 F 08/26/19 15:00 Pulse 66 08/26/19 17:11 Resp 14 08/26/19 15:00 BP 113/76 08/26/19 17:11 Pulse Ox 100 08/26/19 17:11 Weight last 48 hrs Weight 71.214 kg Physical Exam Narrative: EXAM NARRATIVE: Right arm in sling Const: COMMON NORMALS: no acute distress and patient oriented x3 GENERAL APPEARANCE: cooperative and comfortable HENMT: COMMON NORMALS: normocephalic HEAD & SCALP: normocephalic Eye: COMMON NORMALS: Equal, round and reactive pupils present, EOMs intact bilaterally and no papilledema GENERAL EYE: appearance normal, both eyes and all related structures PUPIL: Yes Equal, round and reactive pupils present DIRECT OPHTHALMOSCOPY: Yes no papilledema Neck/C-Spine: COMMON NORMALS: full ROM, no lymphadenopathy, no JVD and Thyroid normal THYROID: Thyroid normal Lymph: LYMPHATIC: no lymphadenopathy noted Resp: COMMON NORMALS: normal respiratory effort, No retractions, No use of accessory muscles and clear to auscultation bilaterally AUSCULTATION: clear to auscultation bilaterally Cardio: COMMON NORMALS: no JVD, regular rate, regular rhythm, S1 normal heart sound present, S2 normal heart sound present, No gallops present (Cardio), No clicks present (Cardio) and No murmurs present (Cardio) RATE: regular rate RHYTHM: regular rhythm HEART SOUNDS: S1 normal heart sound present and S2 normal heart sound present GI: COMMON NORMALS: Normal to inspection, nondistended, normoactive bowel sounds present, Soft to palpation, non-tender and No hepatosplenomegaly present PALPATION: Yes Soft to palpation and Yes No hepatosplenomegaly present Extremity: COMMON NORMALS: normal to inspection, full ROM and no pedal edema Neuro: COMMON NORMALS: patient oriented x3, CN's II-XII intact bilaterally, moves all extremities and no focal motor deficits Psych: COMMON NORMALS: mental status grossly normal, Normal thought process present and cooperative THOUGHT PROCESS: Normal thought process present A&P Assessment and plan (1) Fracture of neck of humerus: -We will get preop CBC, CMP, mag, phos, INR, EKG, chest x-ray -No significant cardiac history except history of SVT, for SVT she is conservatively managed through Dr. Alex, last episode was 06/08/2019, no chest pain, no palpitations, no history of CAD, no history of heart failure, no history of CKD, no history of COPD, no history of diabetes, no history of hypertension, no history of issues with anesthesia -No recent fevers, chills, no cough, no sick contacts -N.p.o. 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
[2019-08-26 19:11] VITALS: BP 109/66; PULSE 70; RESP 16; O2SAT 99
[2019-08-26 20:00] VITALS: BP 109/66; PULSE 70; RESP 18; O2SAT 99
[2019-08-26 20:32] VITALS: BP 102/64; PULSE 62; RESP 17; TEMP 36.3; O2SAT 96
--- NOTE | 2019-08-26 20:32 | XR_ITS ---
WS: [id number] PORTABLE CHEST HISTORY: preop COMPARISON: 06/04/2019 Benign granuloma RIGHT upper lobe. Lungs are clear. Normal vasculature. No pleural effusion or pneumo thorax. Cardiac size: Normal. Mediastinum/Aorta: Normal mediastinum. Acute fracture involving the RIGHT humeral neck with medial displacement by 1.5 cm. XR/XR chest 1V portable [id number] IMPRESSION: 1. Unremarkable chest. 2. Acute RIGHT humeral neck fracture with medial displacement.
[2019-08-26 21:13] VITALS: RESP 16
[2019-08-26] MEDS: morphine 4 mg/mL SDV 1 mL IVP (21:13)
[2019-08-26] MEDS: heparin 5,000 unit/mL INJ 1 mL 5000 UNIT SUBCUT (21:14)
--- NOTE | 2019-08-26 21:14 | P.CONIM_ITS ---
Providers/Reason For Consult Consulting Physican/Specialty*: Abhijeet López D.O. Orthopedic surgery Reason for Consult*: right proximal humeral fracture Attending Physician: Simon Hall MD History of Present Illness History of Present Illness Nenita Legre is a 64 year old female who had the misfortune of falling off her horse today sustaining injury to her right shoulder. She was evaluated in the emergency room and found to have a displaced two-part proximal humeral fracture. Orthopedic consultation was requested. No complaints of other injuries other than her right shoulder. No complaints of numbness or weakness in her right hand. Review of Systems Const: Denies: fever(s) or chills Card: Denies: chest pain, palpitations or syncope Resp: Denies: dyspnea, productive cough or non-productive cough GI: Denies: abdominal pain, nausea or vomiting Musc: Reports: joint pain (right shoulder) Neuro: Denies: numbness in extremities or weakness in extremities Meds/Allergies Home Medications and Allergies Home Medications Medication Instructions Recorded Confirmed Last Taken Type multivitamin [Multiple Vitamins] See Rx Instructions .ROUTE .COMPLEX 06/04/19 08/26/19 08/26/19 History Soy Isoflavones 1 tab PO EVERY OTHER DAY 08/26/19 08/26/19 Unknown History cholecalciferol (vitamin D3) 50 mcg PO DAILY 08/26/19 08/26/19 Unknown History [Vitamin D3] Allergies Allergy/AdvReac Type Severity Reaction Status Date / Time Tetracyclines Allergy ADR-Gastrointestinal Verified 06/04/19 16:44 Upset Current Medications Current Medications Generic Name Dose Route Start Last Admin Trade Name Freq PRN Reason Stop Dose Admin Morphine Sulfate 2 - 4 mg 08/26/19 20:54 08/26/19 21:13 Morphine IVP 2 mg Q4H PRN Administration SEVERE PAIN PFSH Acute PFSH: Surgical History (Updated 08/26/19 @ 18:33 by Simon Hall MD) History of appendectomy Family History (Updated 06/08/19 @ 11:09 by Shiloh Esquivel MD) Father Hypertension Stroke Aortic aneurysm Family/Other CAD (coronary artery disease), Onset Age: 53 massive heart attack Hypertension Social History (Updated 08/26/19 @ 18:33 by Simon Hall MD) Smoking and tobacco status: never smoked Alcohol intake: current Alcohol intake frequency: holidays/special occasions only Substance/Drug Use: never Vitals/I&O/Wt Last Vital Signs Temp 97.4 F L 08/26/19 20:32 Pulse 62 08/26/19 20:32 Resp 16 08/26/19 21:13 BP 102/64 08/26/19 20:32 Pulse Ox 96 08/26/19 20:32 Weight last 48 hrs Weight 157 lb Physical Exam Narrative: EXAM NARRATIVE: 64-year-old white female in no acute distress. She is wearing a sling immobilizing her right upper extremity. Skin is intact overlying the right shoulder. Digits are sensate of the right hand with normal capillary refill handgrip is normal. Head is normocephalic atraumatic. Sclerae anicteric. Pupils are equal and round. Lungs are clear to auscultation. No wheezes rales or crackles noted. Heart is regular rate rhythm without murmur or jugular venous distention. Abdomen is soft and nontender. A&P Assessment and plan (1) Fracture of neck of humerus: 64-year-old white female with a displaced two-part fracture of the right proximal humerus. Treatment options were discussed with the patient. Displaced nature of her fracture was recommended she undergo open reduction internal fixation. Risks, benefits and potential complications of surgery were discussed with the patient to include but are not limited to loss of reduction potential complications from hardware, avascular necrosis, nerve/blood vessel/tendon injury, decreased range of motion postoperatively compared to her preoperative range of motion. Patient's questions were answered to her satisfaction. She is agreeable to be admitted with surgery planned for tomorrow on 08/27/2019 when OR is available. Status: Acute Qualifiers: Encounter type: initial encounter Fracture type: closed Laterality: right Qualified Code(s): S42.211A - Unspecified displaced fracture of surgical neck of right humerus, initial encounter for closed fracture Consult Attestations Medical Necessity Statement: patient's care will require 2 overnight stays Time Spent in Patient Care: 16 - 35 minutes (>than 50% of time spent in counselling and/or direct pt care on unit) . 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
[2019-08-26 21:33] LABS: Thyroid Stimulating Hormone 1.89 uIU/mL (0.27-4.20)
--- NOTE | 2019-08-26 22:27 | PC.NURSE ---
ADMIT NOTE NOTED PT TO HAVE RIGHT ARM IN SLING
[2019-08-27] VITALS (22 sets, daily range): BP systolic 91–156; BP diastolic 50–85; PULSE 61–90; RESP 13–20; TEMP 36.1–36.8; O2SAT 94–100
--- NOTE | 2019-08-27 | XR_ITS ---
WS: [id number] XR shoulder RT min 2V* [id number] REASON FOR EXAM: OR PICS FINDINGS: Internal fixation changes are noted in the surgical neck fracture of the right humerus a pl ate with 8 screws is seen in good position. XR/XR shoulder RT min 2V* [id number] IMPRESSION: Satisfactory aligned and immobilized fracture of the proximal right humerus.
--- NOTE | 2019-08-27 | SCC_ITS ---
Procedure Done: open reduction internal fixation right proximal humeral fracture with plate and screws 46.4 seconds of fluoroscopic guidance, for a cumulative dose of 1.20 mGy, was provided to Dr. López by the radiology department. C-arm images of the RIGHT shoulder were saved for the patient's permanent record. [facility]
[2019-08-27 02:52] LABS: Basophils % 0.5 %; Eosinophils # 0.1 10^3/uL (0.0-0.8); Eosinophils % 0.8 %; Hematocrit 32.7 % (37.0-47.0); Hemoglobin 10.9 g/dL (11.5-15.3); Lymphocytes # 1.6 10^3/uL (0.8-4.8); Mean Corpuscular HGB Conc 33.3 g/dL (30.0-36.0); Mean Corpuscular Hemoglobin 33.4 pg (28.0-34.0); Mean Corpuscular Volume 100.3 fL (81-99); Mean Platelet Volume 9.2 fL (7.4-10.4); Monocytes # 0.5 10^3/uL (0.2-0.9); Monocytes % 8.6 %; Neutrophils # 4.1 10^3/uL (1.8-7.7); Neutrophils % 64.8 %; Nucleated Red Blood Cells % 0 %; Platelet Count 220 10^3/cmm (130-400); Red Blood Count 3.26 10^6/uL (4.1-5.3); Red Cell Distribution Width 12.4 % (12.1-15.1); White Blood Count 6.3 10^3/uL (4.0-10.0)
[2019-08-27 03:05] LABS: INR 0.97 (0.8-1.2)
[2019-08-27 03:10] LABS: Alanine Aminotransferase 20 U/L (0-33); Albumin Level 3.8 g/dL (3.5-5.2); Alkaline Phosphatase 52 IU/L (35-105); Aspartate Amino Transferase 27 U/L (0-32); Blood Urea Nitrogen 18 mg/dL (8-23); Calcium 9.2 mg/dL (8.5-10.5); Carbon Dioxide 26 mmol/L (22-29); Chloride 101 mmol/L (98-107); Globulin 2.3 g/dL (1.3-4.6); Glomerular Filtration Rate 63.2 mL/min (90-130); Glucose 129 mg/dL (65-115); Magnesium 2.2 mg/dL (1.7-2.3); Osmolality Calculated 286 mOsm/kg (285-295); Phosphorus 5.1 mg/dL (2.5-4.5); Sodium 139 mmol/L (136-145); Total Bilirubin 0.5 mg/dL (0.15-1.2); Total Protein 6.1 g/dL (6.6-8.7)
[2019-08-27] MEDS: morphine 4 mg/mL SDV 1 mL IVP ×3 (03:44→13:28)
[2019-08-27 04:17] LABS: Estmated Average Glucose 94; Hemoglobin A1C 4.9 % (4.0-6.0)
[2019-08-27] MEDS: heparin 5,000 unit/mL INJ 1 mL 5000 UNIT SUBCUT (08:21)
--- NOTE | 2019-08-27 09:46 | PC.CHAP ---
Pastoral Care Encounter/Spiritual Assessment Type of Contact [] Declined medicine technologist visit [] Patient/Family/Request visit [] Outpatient visit [] Follow-up visit [] Physician referral [] Code/Alert [x] Routine visit [] Staff referral [] Actively dying [] Patient sleeping [] Family support [] [] Out of room [] Palliative care [] [] Receiving care in room [] Pre-surgical visit [] Trauma [] Long length of stay [] ICU visit [] Other: Relational/Emotional Strength [] Patient feels connected with others/family/visitors/staff [] Distress [] Loneliness/isolation [] Abandonment Spirituality of Patient [] Person of Jazmin [] Attends Holiness of their Jazmin [] Believes in Prayer [] Reads Bible or Restoration materials [] There are Spiritual issues to be addressed 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 [x] Prayer [] Active listening [] Non-anxious presence [] Spiritual/emotional support [] Crisis/trauma care [] Spiritual counseling [] Bereavement support [] Provided bereavement packet [] Provided Bible/devotional materials [] Provided toy/stuffed animal, coloring book to patient or family member [] Provided Communion [] Anointing/[place] [] Salvation [x] Completed spiritual assessment [] Other: Impact on Illness or Injury [] Angry [] Fearful [] Anxious [] Often cries [] Exhaustion [] Unable to work [] Unable to attend gnosticist [] Unable to walk/stand [] Unable to read [] Unable to drive [] Unable to eat/drink [] Unable to sleep [] Unable to be with family [] Patient intubated [] Other: Summary Patient fell from horse. Scheduled for surgery Time spent with patient 10 min
--- NOTE | 2019-08-27 13:42 | P.OP_ITS ---
Operative Report Date of procedure: August 27, 2019 Pre-op Diagnosis: closed, displaced two-part right proximal humeral fracture Post-op diagnosis: same Post-op Findings: mild comminution noted but overall patient has a two-part right proximal humeral fracture. Procedure Done: open reduction internal fixation right proximal humeral fracture with plate and screws Implants: Paige proximal humeral locking plate and screws Pathology: none sent Surgeon: Abhijeet López Anesthesia: General Estimated blood loss (mL): 100 Complications: no apparent complications Findings: images show satisfactory reduction of proximal humeral fracture fracture with appropriate positioning of implants (plate and screws) Condition: stable Disposition: same day Brief History: 64-year-old white female who fell from a horse sustaining a two- part displaced fracture of her right proximal humerus. Risks, benefits and potential complications of surgery discussed with the patient. Risks include aren't limited to loss reduction cut out of implants possible collapse of the hu meral head avascular necrosis. She is wear that she may require other surgeries to either remove or modify hardware later date. Other medical complications can include wound healing complications such as infection hematoma nerve/blood vessel/tendon injury. Also there is potential risk for blood clots, heart attack, stroke risk up to including . All questions were answered patient agreeable to proceed with surgery. Procedure: 2 g Ancef Patient identified. Surgical site was signed. Surgical permit was signed. The patient received 2 g of Ancef intravenously for surgical prophylaxis. She was taken to the operating room. She was transferred to the operating room table. She is placed under general anesthesia without difficulty. The patient was then positioned in the beachchair positioner. She was sterilely prepped and draped usual fashion. A timeout was performed. Using a marking pen we marked out our bony landmarks. Using a skin knife and incision is made at the inferior border of the clavicle lateral to the coracoid process extending to the upper arm. Incisions proximally 15 cm in length. Full-thickness skin flaps were made and skin edge bleeders were treated with electrocautery. We undermined skin edges with the Metzenbaum scissors. Soft tissue traction placed the wound. We then developed the deltotrapezial pectoral interval. We swept the deltoid laterally. Fracture hematoma was encountered this was suctioned. Identified or long head of the biceps tendon. The humeral head was posterior compared to proximal shaft. With traction were able to disengage the impacted fracture. Fracture hematoma was removed from the fracture site. Using a Davison elevator as a shoehorn were able to with traction reduce the proximal humeral shaft in relationship to the humeral head and widening the bicipital groove. A Paige proximal humeral locking plate was then positioned and held in place using K wires. Fluoroscopic imaging was used to verify appropriate placement of the plate with regards to its height in order to prevent impingement. Was found to be appropriate. A cortical screw was then placed in the shaft to compress the plate down to bone. A series of locking screws were placed proximally using fluoroscopy to verify appropriate length and also to keep the screws within the humeral head. Distal locking screws were placed in the shaft. Fluoroscopic imaging demonstrated satisfactory reduction of the fracture and placement of implants with no evidence of screws going through the humeral head are going into the joint line. The wounds irrigated with Betadine-containing saline solution and antibiotic containing saline solution. Deltopectoral interval was loosely closed with 0 Vicryl suture subcutaneous closure with 2-0 undyed Vicryl followed by a running 3-0 Monocryl subcuticular suture. Dermabond Steri-Strips were applied. The incision was injected with 20 mL of a one-to-one mixture 1% lidocaine and half percent Marcaine with epinephrine. Sterile dressings were applied. The patient is placed in a sling. She was aroused from general anesthesia. She was taken to recovery room. She tolerated surgery well. All counts are correct.
--- NOTE | 2019-08-27 15:05 | ANES.PREANE2 ---
Pre-Anesthetic Assessment Pre-Anesthetic Assessment: Height/Weight: Height 1.65 m Weight 71.214 kg Temp Pulse Resp BP Pulse Ox 97.7 F 61 16 147/58 96 08/27/19 14:50 08/27/19 14:50 08/27/19 14:50 08/27/19 14:50 08/27/19 14:50 Preop Diagnosis: closed, displaced two-part right proximal humeral fracture Proposed Procedure: Operation Date: 08/27/19 15:35 Proposed Procedures p ORIF Proximal Humerus(Right) - Abhijeet López, DO Was Beta Rajinder taken within 24 hours: N/A Last intake: Intake Last Liquid Date 08/27/19 Last Liquid Time 05:00 Last Solid Date 08/26/19 Last Solid Time 22:30 Social: Social History: Alcohol and No tobacco Exam: Pre-Anes Outpt Exam: alert, oriented x 3, clear to auscultation bilaterally and regular rate & rhythm Airway: Submandibular: WNL Cervical ROM: WNL MP: 2 Dentition: Full History/ROS: No significant history except as noted and No significant complaints Pulmonary: Pulmonary: None reported CV/HEM: CV/HEM: None reported : : None reported Hepatic: Hepatic: None reported GI: GI: None reported Metabolic: Metabolic: None reported Musc/skel: Musc/skel: None reported Neuropsych: Neuropsych: None reported Anesthetic Plan: ASA status: 2 Anesthesia: General Risk of > 500 ml blood loss (7ml/kg in children): No Meds/Allergies Current Medications: Current Medications Generic Name Dose Route Start Last Admin Trade Name Freq PRN Reason Stop Dose Admin Heparin Sodium (Be ef Lung) 5,000 unit 08/26/19 20:32 08/27/19 08:21 Heparin SUBCUT 5,000 unit Q8H MARIANGEL Administration Morphine Sulfate 2 - 4 mg 08/26/19 20:54 08/27/19 13:28 Morphine IVP 4 mg Q4H PRN Administration SEVERE PAIN PFSH Anesthesia PFSH: Surgical History (Updated 08/26/19 @ 18:33 by Simon Hall MD) History of appendectomy Family History (Updated 06/08/19 @ 11:09 by Shiloh Esquivel MD) Father Hypertension Stroke Aortic aneurysm Family/Other CAD (coronary artery disease), Onset Age: 53 massive heart attack Hypertension Social History (Updated 08/26/19 @ 18:33 by Simon Hall MD) Smoking and tobacco status: never smoked Alcohol intake: current Alcohol intake frequency: holidays/special occasions only Substance/Drug Use: never Data Anesthesia CBC & Chem 7: 08/27/19 02:40 08/27/19 02:40 Other Labs: Laboratory Results - last 48 hr 08/26/19 08/27/19 08/27/19 20:45 02:40 02:40 WBC RBC Hgb Hct MCV MCH MCHC RDW Plt Count MPV Neut % (Auto) Lymph % (Auto) [place] % (Auto) Eos % (Auto) Baso % (Auto) Neut # (Auto) Lymph # (Auto) [place] # (Auto) Eos # (Auto) Baso # (Auto) Nucleated RBC % (auto) Nucleated RBCs # PT 13.20 INR 0.97 Sodium 139 Potassium 4.0 Chloride 101 Carbon Dioxide 26 Anion Gap 16.0 BUN 18 Creatinine 0.9 GFR Calculation 63.2 L Glucose 129 H Estimat Average Glucose Hemoglobin A1c Calculated Osmolality 286 Calcium 9.2 Phosphorus 5.1 H Magnesium 2.2 Total Bilirubin 0.5 AST 27 ALT 20 Alkaline Phosphatase 52 Total Protein 6.1 L Albumin 3.8 Globulin 2.3 TSH 1.89 08/27/19 08/27/19 02:40 02:40 WBC 6.3 RBC 3.26 L Hgb 10.9 L Hct 32.7 L MCV 100.3 H MCH 33.4 MCHC 33.3 RDW 12.4 Plt Count 220 MPV 9.2 Neut % (Auto) 64.8 Lymph % (Auto) 25.0 [place] % (Auto) 8.6 Eos % (Auto) 0.8 Baso % (Auto) 0.5 Neut # (Auto) 4.1 Lymph # (Auto) 1.6 [place] # (Auto) 0.5 Eos # (Auto) 0.1 Baso # (Auto) 0.0 Nucleated RBC % (auto) 0 Nucleated RBCs # 0.0 PT INR Sodium Potassium Chloride Carbon Dioxide Anion Gap BUN Creatinine GFR Calculation Glucose Estimat Average Glucose 94 Hemoglobin A1c 4.9 Calculated Osmolality Calcium Phosphorus Magnesium Total Bilirubin AST ALT Alkaline Phosphatase Total Protein Albumin Globulin TSH Cardiac Studies: No Data to Display
[2019-08-27] MEDS: sodium chloride 0.9% 1,000 ML 30 ML IV (15:08)
--- NOTE | 2019-08-27 16:18 | SUR.OPER ---
1605 CALLED 2N TO RETRIEVE PT'S FRIENDS (Mckenzie) PHONE NUMBER. SENIOR [employer] NET DEVELOPER STATED THAT NO NUMBERS ARE AVAILABLE FOR PT. LOOKED AT CHART AND NO NUMBERS EXCEPT HUSBANDS. LEFT A VOICE MAIL ON 'S PHONE AT 1620
--- NOTE | 2019-08-27 16:43 | PM.PN ---
Subjective Subjective: Interval history: This morning patient has no significant complaints, is waiting for her surgery, has no significant complaints, no fevers, no chills, no nausea, no vomiting Vitals/I&O/Wt Last Vital Signs Temp 97.7 F 08/27/19 14:50 Pulse 61 08/27/19 14:50 Resp 16 08/27/19 14:50 BP 147/58 08/27/19 14:50 Pulse Ox 96 08/27/19 14:50 08/27/19 08/27/19 08/27/19 06:59 14:59 22:59 Intake Total 360 / 360 Balance 360 / 360 Weight last 48 hrs Weight 71.214 kg Physical Exam Narrative: EXAM NARRATIVE: Right arm in sling Const: COMMON NORMALS: no acute distress and patient oriented x3 GENERAL APPEARANCE: cooperative and comfortable HENMT: COMMON NORMALS: normocephalic HEAD & SCALP: normocephalic Neck/C-Spine: COMMON NORMALS: full ROM, no lymphadenopathy, no JVD and Thyroid normal THYROID: Thyroid normal Lymph: LYMPHATIC: no lymphadenopathy noted Resp: COMMON NORMALS: normal respiratory effort, No retractions, No use of accessory muscles and clear to auscultation bilaterally AUSCULTATION: clear to auscultation bilaterally Cardio: COMMON NORMALS: no JVD, regular rate, regular rhythm, S1 normal heart sound present, S2 normal heart sound present, No gallops present (Cardio), No clicks present (Cardio) and No murmurs present (Cardio) RATE: regular rate RHYTHM: regular rhythm HEART SOUNDS: S1 normal heart sound present and S2 normal heart sound present GI: COMMON NORMALS: Normal to inspection, nondistended, normoactive bowel sounds present, Soft to palpation, non-tender and No hepatosplenomegaly present PALPATION: Yes Soft to palpation and Yes No hepatosplenomegaly present Extremity: COMMON NORMALS: normal to inspection, full ROM and no pedal edema Neuro: COMMON NORMALS: patient oriented x3 Data : 08/27/19 02:40 08/27/19 02:40 A&P Assessment and plan (1) Fracture of neck of humerus: -No significant cardiac history except history of SVT, for SVT she is conservatively managed through Dr. Alex, last episode was 06/08/2019, no chest pain, no palpitations, no history of CAD, no history of heart failure, no history of CKD, no history of COPD, no history of diabetes, no history of hypertension, no history of issues with anesthesia -No recent fevers, chills, no cough, no sick contacts -N.p.o. currently, proceeding to surgery this afternoon -Full code, heparin for DVT prophylaxis Status: Acute Qualifiers: Encounter type: initial encounter Fracture type: closed Laterality: right Qualified Code(s): S42.211A - Unspecified displaced fracture of surgical neck of right humerus, initial encounter for closed fracture (2) SVT (supraventricular tachycardia): -Continue telemetry monitoring Status: Acute Attestations Medical Necessity Statement*: Patient requires continued hospitalization for right arm humeral fracture, Coding Level of Care Code Acute Lead Recoverer for [facility] Diagnoses Fracture of neck of humerus S42.211A Encounter type: initial encounter Fracture type: closed Laterality: right SVT (supraventricular tachycardia) I47.1
[2019-08-27] MEDS: acetaminophen 500 mg Tablet 1000 MG PO (18:28)
[2019-08-27] MEDS: iron polysaccharide complex 150 mg Capsule PO (18:28)
[2019-08-27] MEDS: oxyCODONE 5 mg IR Tab/Cap PO ×2 (18:28→22:40)
[2019-08-27] MEDS: calcium carb-vit d 600mg/400unit 1 Tablet 1 EACH PO (18:28)
[2019-08-27] MEDS: sennosides-docusate Tablet 2 TAB PO (18:28)
--- NOTE | 2019-08-27 18:39 | NUR.SHIFT ---
SHIFT SUMMARY PATIENT JUST ARRIVED FROM THE OR. DRESSING HAS MODERATE AMOUNT OF BLOOD ON IT, BUT NOT OOZING THROUGH AT THIS TIME. BP SLIGHTLY ELEVATED. PATIENT RATES PAIN 9/10. THIS NURSE ADMINISTERED SCHEDULED TYLENOL AND OXY IR 10MG. FLUIDS RUNNING. PATIENT DRINKING CLEAR LIQUIDS AT THIS TIME.
[2019-08-27] MEDS: sodium chloride 0.9% 1,000 ML 100 ML IV (20:10)
[2019-08-28] VITALS (10 sets, daily range): BP systolic 78–104; BP diastolic 42–68; PULSE 51–60; RESP 16–20; TEMP 36.5–36.7; O2SAT 96–100
[2019-08-28] MEDS: acetaminophen 500 mg Tablet 1000 MG PO ×2 (02:46→07:41)
[2019-08-28] MEDS: sodium chloride 0.9% 1,000 ML 100 ML IV (06:09)
[2019-08-28 06:25] LABS: Basophils % 0.2 %; Hematocrit 31.5 % (37.0-47.0); Lymphocytes # 0.9 10^3/uL (0.8-4.8); Lymphocytes % 13.6 %; Mean Corpuscular HGB Conc 31.7 g/dL (30.0-36.0); Mean Corpuscular Hemoglobin 33.2 pg (28.0-34.0); Mean Corpuscular Volume 104.7 fL (81-99); Mean Platelet Volume 9.6 fL (7.4-10.4); Monocytes # 0.6 10^3/uL (0.2-0.9); Monocytes % 8.6 %; Neutrophils % 77.3 %; Nucleated Red Blood Cells % 0 %; Platelet Count 203 10^3/cmm (130-400); Red Blood Count 3.01 10^6/uL (4.1-5.3); Red Cell Distribution Width 12.6 % (12.1-15.1); White Blood Count 6.4 10^3/uL (4.0-10.0)
[2019-08-28 06:43] LABS: Alanine Aminotransferase 17 U/L (0-33); Albumin Level 3.5 g/dL (3.5-5.2); Alkaline Phosphatase 51 IU/L (35-105); Anion Gap 16.6 (5-19); Aspartate Amino Transferase 22 U/L (0-32); Blood Urea Nitrogen 9 mg/dL (8-23); Carbon Dioxide 22 mmol/L (22-29); Chloride 103 mmol/L (98-107); Globulin 2.4 g/dL (1.3-4.6); Glucose 119 mg/dL (65-115); Magnesium 1.9 mg/dL (1.7-2.3); Osmolality Calculated 281 mOsm/kg (285-295); Phosphorus 4.4 mg/dL (2.5-4.5); Potassium 4.6 mmol/L (3.5-5.1); Sodium 137 mmol/L (136-145); Total Bilirubin 0.5 mg/dL (0.15-1.2); Total Protein 5.9 g/dL (6.6-8.7)
[2019-08-28] MEDS: multivitamin therapeutic Tablet 1 TAB PO (07:41)
[2019-08-28] MEDS: calcium carb-vit d 600mg/400unit 1 Tablet 1 EACH PO (07:41)
[2019-08-28] MEDS: cholecalciferol (vitamin D3) 1,000 unit Tablet 1000 UNIT PO (07:41)
[2019-08-28] MEDS: sennosides-docusate Tablet 2 TAB PO (07:41)
[2019-08-28] MEDS: iron polysaccharide complex 150 mg Capsule PO (07:41)
--- NOTE | 2019-08-28 08:48 | PM.PN ---
Subjective Subjective: Interval history: 64-year-old white female postoperative day 1 status post ORIF two-part right proximal humeral fracture. she states her pain is controlled. She denies paresthesias or weakness of her right hand. Should like to be discharged home Vitals/I&O/Wt Last Vital Signs Temp 97.7 F 08/28/19 07:33 Pulse 58 L 08/28/19 07:33 Resp 18 08/28/19 07:33 BP 96/67 08/28/19 07:33 Pulse Ox 99 08/28/19 07:33 08/27/19 08/28/19 08/28/19 22:59 06:59 14:59 Intake Total 1300 / 1660 2678.333 / 4338.333 960 / 960 Output Total 100 / 100 Balance 1200 / 1560 2678.333 / 4238.333 960 / 960 Weight last 48 hrs Weight 157 lb Physical Exam Narrative: EXAM NARRATIVE: 64-year-old white female in no acute distress. She is alert and cooperative. Her dressing was changed incision was intact a new dressing was applied there is no evidence of infection. She has swelling in the distal arm which is to be anticipated following her fracture and surgery. Handgrip is strong digits are sensate the right upper extremity. Lungs are clear to auscultation heart is regular rate rhythm no calf tenderness. Intraoperative fluoroscopic images showed satisfactory placement of plate and screws with improved alignment of the two-part right proximal humeral fracture. Data : 08/28/19 06:09 08/28/19 06:09 A&P Assessment and plan (1) Postoperative state: Dressing was changed today. Patient's finish postoperative antibiotics. She will be discharged to home today. She was instructed on pendulum exercises as well as range of motion of her elbow to prevent stiffness. Prescription for Percocet 07/17/2024 one by mouth every 4 hours. Pain dispense #40 was provided September [address] López for follow-up appointment repeat radiographs to be taken at that time of the right shoulder Status: Acute (2) History of fracture of right shoulder: Status: Resolved Attestations Medical Necessity Statement*: patient ready for discharge to home Time Spent in Patient Care: 16 - 35 minutes (>than 50% of time spent in counselling and/or direct pt care on unit). Coding Level of Care Code Acute University Demonstrator for [facility] Diagnoses Postoperative state Z98.890 History of fracture of right shoulder Z87.81
[2019-08-28] MEDS: oxyCODONE 5 mg IR Tab/Cap PO (09:12)
--- NOTE | 2019-08-28 11:43 | P.DS_ITS ---
Discharge Providers Date of Admission: 08/26/19 17:53 Date of Discharge: August 28, 2019 Attending Provider at Admission: Simon Hall MD Attending Provider at Discharge: Simon Hall MD Diagnoses at Discharge Discharge Diagnosis (1) History of fracture of right shoulder: Status: Acute Reason for Visit Reason for Visit: r arm pain Hospital Course Discharge Summary: This is a 64-year-old female with a past medical history of SVT who presents to [facility] after a fall sustaining a right fracture of the humerus. Patient received open reduction internal fixation right proximal humeral fracture with plate and screws, by Dr. López, tolerated surgical procedure well, discharged home with physical therapy, pain control, and instructions to follow-up with Dr. López as outpatient. Physical Exam Const: COMMON NORMALS: no acute distress and patient oriented x3 HENMT: COMMON NORMALS: normocephalic HEAD & SCALP: normocephalic Neck/C-Spine: COMMON NORMALS: no JVD Resp: COMMON NORMALS: normal respiratory effort, No retractions, No use of accessory muscles and clear to auscultation bilaterally AUSCULTATION: clear to auscultation bilaterally Cardio: COMMON NORMALS: no JVD, regular rate, regular rhythm, S1 normal heart sound present and S2 normal heart sound present RATE: regular rate RHYTHM: regular rhythm HEART SOUNDS: S1 normal heart sound present and S2 normal heart sound present GI: COMMON NORMALS: Normal to inspection, nondistended, normoactive bowel sounds present, Soft to palpation, non-tender, No hepatosplenomegaly present, no masses and no bruits PALPATION: Yes Soft to palpation and Yes No hepatosplenomegaly present Extremity: COMMON NORMALS: capillary refill normal, no clubbing, cyanosis or edema, no calf tenderness and no pedal edema Neuro: COMMON NORMALS: patient oriented x3 Psych: COMMON NORMALS: mental status grossly normal Discharge Data Data Completed and Pending: Completed Studies During Hospitalization Category Date Time Status CT shoulder RT wo con* [id number] Urgent Cat Scan 08/26/19 17:36 Completed XR chest 1V kika ble [id number] Routine Exams 08/26/19 20:32 Completed XR shoulder RT mi n 2V* [id number] Stat Exams 08/26/19 15:04 Completed Pending at discharge Category Date Time Status C-arm Fluoroscopy [id number] Routine Exams 08/27/19 15:17 Taken Complete Blood Co unt w/Auto AM LABS Lab 08/29/19 04:00 Ordered Complete Blood Co unt w/Auto AM LABS Lab 08/30/19 04:00 Ordered Comprehensive Met abolic Panel AM LA BS Lab 08/29/19 04:00 Ordered Magnesium AM LABS Lab 08/29/19 04:00 Ordered Phosphorus AM LAB S Lab 08/29/19 04:00 Ordered Labs from last 24 hours 08/28/19 08/28/19 06:09 06:09 WBC 6.4 RBC 3.01 L Hgb 10.0 L Hct 31.5 L MCV 104.7 H MCH 33.2 MCHC 31.7 RDW 12.6 Plt Count 203 MPV 9.6 Neut % (Auto) 77.3 Lymph % (Auto) 13.6 [place] % (Auto) 8.6 Eos % (Auto) 0.0 Baso % (Auto) 0.2 Neut # (Auto) 5.0 Lymph # (Auto) 0.9 [place] # (Auto) 0.6 Eos # (Auto) 0.0 Baso # (Auto) 0.0 Nucleated RBC % (a uto) 0 Nucleated RBCs # 0.0 Sodium 137 Potassium 4.6 Chloride 103 Carbon Dioxide 22 Anion Gap 16.6 BUN 9 Creatinine 0.6 GFR Calculation 101.0 Glucose 119 H Calculated Osmolal ity 281 L Calcium 9.0 Phosphorus 4.4 Magnesium 1.9 Total Bilirubin 0.5 AST 22 ALT 17 Alkaline Phosphata se 51 Total Protein 5.9 L Albumin 3.5 Globulin 2.4 Vitals: Last Vital Signs Temp 97.8 F 08/28/19 11:24 Pulse 59 L 08/28/19 11:24 Resp 20 H 08/28/19 11:24 BP 103/66 08/28/19 11:24 Pulse Ox 100 08/28/19 11:24 Discharge Plan Discharge Patient Disposition: Home, Self-Care Condition: Stable Prescriptions: New oxycodone-acetaminophen 5-325 mg tablet 1 tab PO Q4H PRN (Reason: pain) Qty: 30 RF: 0 Continued multivitamin [Multiple Vitamins] Tablet See Rx Instructions .ROUTE .COMPLEX RF: 0 Vitamin D3 50 mcg (2,000 unit) Capsule 50 mcg PO DAILY RF: 0 Soy Isoflavones 1 tab PO EVERY OTHER DAY RF: 0 Discharge Orders: Discharge Order (Routine); Ordered 08/28/19 Ordered By: Simon Hall Referrals: Abhijeet López DO [Physician] - 2 weeks (I should be in the office on either the or 09 September follow-up visit can be performed either 1 of those days when I am in the office-Dr. López) Discharge Diet: Regular Discharge Activity: Limit activity as instructed Activity Restrictions/Additional Instructions: May remove dressings in 48 hours May shower at that time. If there is additional drainage may apply a light dressing to the area Skin is covered with skin glue and Steri-Strips so no dressing is required if there is no drainage Use sling for comfort Come out of sling 3-4 times a day to move wrist elbow and to perform pendulum exercises. With arm held at the side you may use your right upper extremity for activities of daily living such as eating. If not too painful you may attempt to do activities such as brushing her teeth or combing her hair with your right hand. May use her right upper extremity to eat again if not too painful Apply ice to affected shoulder 20 minutes on 20 minutes off to decrease pain and swelling Discharge Attestations Time Spent in Discharge Care*: less than 30 min Quality Metrics Clinical Quality Measures During this hospital stay, did patient experience: None Coding Level of Care Code Acute Patient Care Provider for [facility] Diagnoses History of fracture of right shoulder Z87.81
== END 2019-08-28 12:47 | disposition home or self-care (01) ==
LOC: ER 17:38 → MEDSURG 18:15
PROVIDERS: Family Medicine; Orthopaedic Surgery; Admitting Provider Family Medicine; Visit Provider Family Medicine
PROC: (CPT 23615; principal; 2019-08-27 15:35)
DX: S42.211A Unspecified displaced fracture of surgical neck of right humerus, initial encounter for closed fracture (principal); X58.XXXA Exposure to other specified factors, initial encounter; Z87.81 Personal history of (healed) traumatic fracture; Z98.890 Other specified postprocedural states; I47.1 Supraventricular tachycardia; Z82.49 Family history of ischemic heart disease and other diseases of the circulatory system; Z83.3 Family history of diabetes mellitus
CPT/HCPCS: 23615; 12345; 29240; 36415; 71045; 73030; 73200; 76000; 80053; 83036; 83735; 84100; 84443; 85025; 85610; 94664; 96372; 96374; 96375; 97110; 97161; 97165; 99283; 99285; C1713; G0378; J0131; J0690; J1100; J1580; J1644; J2001; J2270; J2405; J2704; J3010; J3490; J7030

== ENCOUNTER → 2019-09-10 08:01 | Outpatient (BNVA) | payer OTHER, SELFPAY | PROVIDERS: Visit Provider Orthopaedic Surgery | DX: Z98.890 Other specified postprocedural states (principal); Z87.81 Personal history of (healed) traumatic fracture | CPT/HCPCS: 73030 ==

== ENCOUNTER → 2019-10-06 08:57 | Outpatient (BNVA) | payer OTHER, SELFPAY | PROVIDERS: Visit Provider Orthopaedic Surgery | DX: S42.211D Unspecified displaced fracture of surgical neck of right humerus, subsequent encounter for fracture with routine healing (principal); Z98.890 Other specified postprocedural states; X58.XXXD Exposure to other specified factors, subsequent encounter | CPT/HCPCS: 73030 ==

== ENCOUNTER 2019-10-14 08:34 | Outpatient (RCR) | payer OTHER, SELFPAY | END 2019-10-15 23:59 | disposition home or self-care (01) | LOC: SPT 08:34 | PROVIDERS: Referring Provider Orthopaedic Surgery; Visit Provider Orthopaedic Surgery | DX: Z47.89 Encounter for other orthopedic aftercare (principal); S42.201D Unspecified fracture of upper end of right humerus, subsequent encounter for fracture with routine healing; X58.XXXD Exposure to other specified factors, subsequent encounter | CPT/HCPCS: 97161 ==

== ENCOUNTER 2019-10-16 06:00 | Outpatient (RCR) | payer OTHER, SELFPAY | END 2019-11-15 23:59 | disposition home or self-care (01) | LOC: SPT 06:00 | PROVIDERS: Referring Provider Orthopaedic Surgery; Visit Provider Orthopaedic Surgery | DX: Z47.89 Encounter for other orthopedic aftercare (principal); S42.201D Unspecified fracture of upper end of right humerus, subsequent encounter for fracture with routine healing; X58.XXXD Exposure to other specified factors, subsequent encounter | CPT/HCPCS: 97110 ==

== ENCOUNTER 2019-11-16 06:00 | Outpatient (RCR) | payer OTHER, SELFPAY | END 2019-12-15 23:59 | disposition home or self-care (01) | LOC: SPT 06:00 | PROVIDERS: Referring Provider Orthopaedic Surgery; Visit Provider Orthopaedic Surgery | DX: Z47.89 Encounter for other orthopedic aftercare (principal); S42.201D Unspecified fracture of upper end of right humerus, subsequent encounter for fracture with routine healing; X58.XXXD Exposure to other specified factors, subsequent encounter | CPT/HCPCS: 97110 ==

== ENCOUNTER → 2019-11-24 10:37 | Outpatient (BNVA) | payer OTHER, SELFPAY | PROVIDERS: Visit Provider Specialist | DX: Z98.890 Other specified postprocedural states (principal); Z87.81 Personal history of (healed) traumatic fracture | CPT/HCPCS: 73030 ==

== ENCOUNTER → 2020-07-17 15:26 | Outpatient (BNVA) | payer OTHER, SELFPAY | PROVIDERS: Visit Provider Specialist | DX: Z98.890 Other specified postprocedural states (principal); Z87.81 Personal history of (healed) traumatic fracture | CPT/HCPCS: 73030 ==

== ENCOUNTER → 2021-03-26 14:21 | Outpatient (BNVA) | payer MEDICARE, SELFPAY | PROVIDERS: Visit Provider Specialist | DX: Z20.822 Contact with and (suspected) exposure to COVID-19 (principal); Z87.81 Personal history of (healed) traumatic fracture; Z01.812 Encounter for preprocedural laboratory examination; T84.84XA Pain due to internal orthopedic prosthetic devices, implants and grafts, initial encounter; S42.291D Other displaced fracture of upper end of right humerus, subsequent encounter for fracture with routine healing; X58.XXXD Exposure to other specified factors, subsequent encounter | CPT/HCPCS: 73030; 87635 ==

== ENCOUNTER → 2021-03-27 09:31 | Outpatient (BNVA) | payer MEDICARE, SELFPAY | PROVIDERS: Visit Provider Family Medicine | DX: Z13.6 Encounter for screening for cardiovascular disorders (principal) | CPT/HCPCS: 80053; 80061; 85025 ==

== ENCOUNTER → 2021-04-10 08:40 | Outpatient (BNVA) | payer MEDICARE, SELFPAY | PROVIDERS: Visit Provider Family Medicine | DX: Z01.419 Encounter for gynecological examination (general) (routine) without abnormal findings (principal) | CPT/HCPCS: 88175 ==

== ENCOUNTER 2021-04-27 08:24 | Day surgery (SDC) | payer MEDICARE, SELFPAY ==
[2021-04-26 13:26] VITALS: BMI 28.9
--- NOTE | 2021-04-27 | SCC_ITS ---
Procedure done: Removal right proximal humeral plate and 8 screws 36.9 seconds of fluoroscopic guidance, for a cumulative dose of 2.21 mGy, was provided to Dr. Whitlock by the radiology department. C-arm images of the RIGHT shoulder were saved for the patient's permanent record. ROSANA
[2021-04-27 08:37] VITALS: BP 130/80; PULSE 62; RESP 16; TEMP 36.4; O2SAT 100
[2021-04-27] MEDS: sodium chloride 0.9% 1,000 ML 30 ML IV (08:57)
[2021-04-27] MEDS: CELEcoxib 200 mg Capsule 400 MG PO (08:58)
[2021-04-27] MEDS: acetaminophen 1,000 MG/100 ML PIGGYBACK 400 MG IV (08:58)
--- NOTE | 2021-04-27 09:06 | ANES.PREANE2 ---
Pre-Anesthetic Assessment Height/Weight: Height 1.65 m Weight 78.925 kg Temp Pulse Resp BP Pulse Ox 97.5 F L 62 16 130/80 100 04/27/21 08:37 04/27/21 08:37 04/27/21 08:37 04/27/21 08:37 04/27/21 08:37 Preop Diagnosis: Painful orthopedic hardware right shoulder Operation Date: 04/27/21 09:40 Proposed Procedures p Hardware Removal Right Humerus 98145 S42.7512(Right) - Verna Whitlock MD Familial anesthetic complications: None Was Beta Rajinder taken within 24 hours: N/A Was Clonidine taken within 24 hours: N/A Last intake: Intake Last Liquid Date 04/26/21 Last Liquid Time 18:30 Last Solid Date 04/26/21 Last Solid Time 18:00 Social No alcohol and No tobacco Exam alert, oriented x 3, clear to auscultation bilaterally and regular rate & rhythm Airway Submandibular: within normal limits Cervical ROM: within normal limits Mallampati: Class II Dentition: full History/ROS No significant history except as noted Anesthetic Plan ASA status: 1 Anesthesia: General Risk of > 500 ml blood loss (7ml/kg in children): No Medications/Allergies Home Medications Medication Instructions Recorded Confirmed Last Taken Type multivitamin (Multiple Vitamins) See Rx Instructions .ROUTE .COMPLEX 06/04/19 04/27/21 04/25/21 History cholecalciferol (vitamin D3) 50 50 mcg PO DAILY 08/26/19 04/27/21 04/25/21 History mcg (2,000 unit) capsule (Vitamin D3) Lactobacillus acidophilus 10 mg PO .weekly cap 04/10/21 04/27/21 04/22/21 History (Acidophilus) ascorbic acid (vitamin C) 1,000 mg 1 g PO DAILY tab 04/10/21 04/27/21 04/25/21 History tablet zinc acetate 50 mg (zinc) capsule 50 mg PO DAILY 04/10/21 04/27/21 04/25/21 History (Galzin) Allergies Allergy/AdvReac Type Severity Reaction Status Date / Time Tetracyclines Allergy ADR-Gastrointestinal Verified 04/27/21 08:35 Upset Current Medications Generic Name Dose Route Start Last Admin Trade Name Freq PRN Reason Stop Dose Admin Sodium Chloride 1,000 mls @ 30 mls/hr 04/27/21 08:30 02/11/22 08:57 Sodium Chloride 0.9% IV 04/28/21 08:29 30 mls/hr .Q24H MARIANGEL Administration PFSH Anesthesia Medical History Closed fracture of right proximal humerus History of fracture of right shoulder Surgical History History of appendectomy Postoperative state Family History Father Hypertension Stroke Aortic aneurysm Family/Other CAD (coronary artery disease), Onset Age: 53 massive heart attack Hypertension Social History Smoking and tobacco status: never smoked Alcohol intake: current Alcohol intake frequency: holidays/special occasions only Data Anesthesia Cardiac Studies: No Data to Display
--- NOTE | 2021-04-27 09:39 | P.HPUD_ITS ---
Surgery/Procedure H&P Update DATE OF PROCEDURE: April 27, 2021 DATE H&P PERFORMED: 04/25/21 H&P UPDATE INFORMATION: I have reviewed H&P completed within last 30 days, I have examined patient prior to procedure, No changes to prior documentation and H&P is in [facility] [place] EMR on date indicated PREOP DIAGNOSIS: Painful orthopedic hardware right shoulder PLANNED PROCEDURE: Operation Date: 04/27/21 09:40 Proposed Procedures p Hardware Removal Right Humerus S42.2915(Right) - Verna Whitlock MD Related Problem List Diagnoses (1) Closed fracture of right proximal humerus: Qualifiers: Encounter type: sequela Fracture morphology: other fracture Fracture alignment: displaced Qualified Code(s): S42.291S - Other displaced fracture of upper end of right humerus, sequela (2) Painful orthopaedic hardware:
[2021-04-27 09:40] LABS: Basophils % 0.4 %; Eosinophils # 0.2 10^3/uL (0.0-0.8); Eosinophils % 2.9 %; Hematocrit 42.5 % (37.0-47.0); Hemoglobin 14.1 g/dL (11.5-15.3); Lymphocytes # 1.6 10^3/uL (0.8-4.8); Lymphocytes % 30.2 %; Mean Corpuscular HGB Conc 33.2 g/dL (30.0-36.0); Mean Corpuscular Hemoglobin 32.7 pg (28.0-34.0); Mean Corpuscular Volume 98.6 fl (81-99); Mean Platelet Volume 9.5 fL (7.4-10.4); Monocytes # 0.4 10^3/uL (0.2-0.9); Monocytes % 7.2 %; Neutrophils # 3.03 10^3/uL (1.8-7.7); Neutrophils % 59.1 %; Nucleated Red Blood Cells % 0 %; Platelet Count 337 10^3/cmm (130-400); Red Blood Count 4.31 10^6/uL (4.1-5.3); Red Cell Distribution Width 12.3 % (12.1-15.1); White Blood Count 5.1 10^3/uL (4.0-10.0)
[2021-04-27 10:10] LABS: Add Urine Microscopic? NO; Charge for UA Resulting for Rev
[2021-04-27 10:21] LABS: Bilirubin Urine Neg (Negative); Blood Urine Neg (Negative); Glucose Urine UA Norm (Normal); Ketones Urine Negative (Negative); Leukocyte Esterase Urine Negative (Negative); Nitrate Urine Negative (Negative); Protein Urine Neg (Negative); Urine Appearance Clear (CLEAR); Urine Color Straw (Yellow); Urobilinogen Urine Norm (Negative); pH Urine 7 (5-7)
[2021-04-27] MEDS: ceFAZolin 1,000 mg SDV 1000 MG IRRIGATION (11:05)
--- NOTE | 2021-04-27 11:45 | XR_ITS ---
WS: [id number] INTRAOPERATIVE TECHNIQUE: 3 Spot fluoroscopic images for intraoperative purposes. FLUOROSCOPY TIME: 36.9 seconds CLINICAL INFORMATION: OR PICS COMPARISON: March 26, 2021 FINDINGS: Hardware removal of the plate and screw fixation RIGHT humerus. Humerus appears normally aligned. Hea led fracture. No other significant findings. XR/XR shoulder RT min 2V* [id number] IMPRESSION: Images obtained for intraoperative purposes.
[2021-04-27 12:03] VITALS: BP 130/72; PULSE 69; RESP 11; TEMP 36.1; O2SAT 97
[2021-04-27 12:10] VITALS: BP 128/67; PULSE 65; RESP 14; O2SAT 100
[2021-04-27 12:14] VITALS: BP 129/68; PULSE 64; RESP 14; O2SAT 100
[2021-04-27 12:18] VITALS: BP 137/45; PULSE 62; RESP 14; TEMP 36.1; O2SAT 100
[2021-04-27 12:20] VITALS: BP 146/79; PULSE 60; RESP 15; TEMP 36.1; O2SAT 98
--- NOTE | 2021-04-27 12:28 | P.OP_ITS ---
Operative Report Date of procedure: April 27, 2021 Pre-op diagnosis: Painful orthopedic hardware right shoulder following open reduction internal fixation of a proximal humerus fracture in August 2019. Post-op diagnosis: Same Procedure done: Removal right proximal humeral plate and 8 screws Specimens removed/disposition: Plate and screws sent with patient Pathology: none sent (But cultures were obtained.) Surgeon: Verna Whitlock Supervisor [employer]: [facility] operating room technicians Anesthesia: General (Per LMA, ASA 1) Estimated blood loss (mL): 20 IV fluids (mL): 900 Urine output (mL): 0 (No Albarran) Complications: None Condition: stable Disposition: PACU (Then return to same-day surgery for discharge to home) Brief History: This 66-year-old white female who fell from a horse sustaining a two-part displaced fracture of her right proximal humerus in 08/26/19.?The patient had an open reduction internal fixation of her closed displaced 2 part right proximal humerus fracture by Dr. López on August 27, 2019. Most recently, the patient has had pain with internal and external rotation of the shoulder. She has crepitation about the hardware consistent with prominence of the hardware and aggravation from it. Patient was seen and evaluated by me, and she requested having the hardware removed. Risks and complications were discussed. Consents were signed. Procedure: The patient was brought to the operating theater and underwent general anesthesia per LMA, ASA 1. The patient was placed in a beachchair position and subsequently the right upper extremity was prepped and draped in the usual fashion utilizing DuraPrep. The arm was draped free. A surgical pause was performed prior to commencement of the surgical procedure. At the time of the surgical pause, we confirmed the site and side of surgery and preoperative surgical markingsas well as administration of appropriate preoperative antibiotics Ancef 2 g. Following the surgical pause, an incision was made through the patient's previous incision from her fracture repair. A muscle-splitting incision at the area of the patient's previous repair was accomplished. Care was taken to protect the axillary nerve through this process. The plate was palpated and identified. Of note, there was a bursa overlying the proximal aspect of the plate consistent with the patient's preoperative findings. The fluid from this was cultured. There were 8 screws in the plate which were removed. These were saved for the patient as was the plate. The plate was then elevated off the bone and was subsequently removed as well. The wound was copiously irrigated with normal saline containing Ancef. Additional irrigation was accomplished with bupivacaine plain. Following this, attention was directed to closure. 3-0 Monocryl was used to close the subcutaneous tissues followed by 4-0 Monocryl subcuticular closure. This was followed by Dermabond Prinandrew andDavid. The patient was returned to the recovery room in satisfactory condition. She was given a sling following her recovery. The patient will be discharged to home to follow-up with me in the office in as scheduled. There were no complications, but cultures were sent upon entry. Related Problem List Diagnoses (1) Closed fracture of right proximal humerus: (2) Painful orthopaedic hardware:
[2021-04-27] MEDS: HYDROcodone-acetaminophen 5-325 mg Tablet 1 TAB PO (14:03)
--- NOTE | 2021-04-27 14:18 | ANE.PACU2 ---
Inpatient post-anesthesia follow up: Airway intact: Yes Vital signs: Temperature 97.0 F Pulse Rate 60 Respiratory Rate 15 Blood Pressure 146/79 Pulse Oximetry 98 Oxygen Delivery Me thod Room Air Oxygen Flow Rate Fraction of Inspir ed Oxygen Hydration adequate: Yes Nausea and vomiting: No Pain level: 2 Mental status: Baseline
== END 2021-04-27 14:12 | disposition home or self-care (01) ==
PROVIDERS: PCP Family Medicine; Visit Provider Specialist
PROC: (CPT 20694; principal; 2021-04-27 09:40)
DX: T84.84XA Pain due to internal orthopedic prosthetic devices, implants and grafts, initial encounter (principal); Z82.49 Family history of ischemic heart disease and other diseases of the circulatory system; Z82.3 Family history of stroke
CPT/HCPCS: 20680; 73030; 76000; 81003; 85025; 87070; 87075; 87205; 96365; J0690; J1100; J1200; J2250; J2405; J2704; J3010; J3490; J7030

== ENCOUNTER → 2021-05-09 09:01 | Outpatient (BNVA) | payer MEDICARE, SELFPAY | PROVIDERS: PCP Family Medicine; Visit Provider Specialist | DX: Z47.89 Encounter for other orthopedic aftercare (principal); S42.201S Unspecified fracture of upper end of right humerus, sequela; X58.XXXS Exposure to other specified factors, sequela | CPT/HCPCS: 73030 ==

== ENCOUNTER 2021-06-12 14:00 | Outpatient (CLI) | payer MEDICARE, SELFPAY ==
--- NOTE | 2021-06-12 15:00 | MM_ITS ---
WS: [id number] BILATERAL 3D TOMOSYNTHESIS DIGITAL SCREENING MAMMOGRAPHY WITH CAD CLINICAL INFORMATION: SCREENING HISTORY: Screening mammogram. No current complaints. COMPARISON: November 04, 2019 TECHNIQUE: Bilateral CC and MLO views. FINDINGS: Scattered fibroglandular densities bilaterally. Incidental punctate calcifications. No suspicious foc al mass, asymmetry, calcifications, or architectural distortion. No evidence of malignancy. MM/[place] [id number] IMPRESSION: BI-RADS: 2-Benign FOLLOW UP: 1 Year Follow-up Recommend return to annual screening mammography.
== END 2021-06-12 14:01 | disposition home or self-care (01) ==
LOC: RAD 14:02
PROVIDERS: PCP Family Medicine; Visit Provider Family Medicine
DX: Z12.31 Encounter for screening mammogram for malignant neoplasm of breast (principal)
CPT/HCPCS: 77063; 77067

== ENCOUNTER → 2022-04-12 10:30 | Outpatient (BNVA) | payer MEDICARE, SELFPAY | PROVIDERS: PCP Family Medicine; Visit Provider Family Medicine | DX: Z13.6 Encounter for screening for cardiovascular disorders (principal); Z79.899 Other long term (current) drug therapy | CPT/HCPCS: 80053; 80061; 85025 ==

== ENCOUNTER → 2022-04-26 08:45 | Outpatient (BNVA) | payer MEDICARE, SELFPAY | PROVIDERS: PCP Family Medicine; Referring Provider Emergency Medicine; Visit Provider Otolaryngology | DX: J01.91 Acute recurrent sinusitis, unspecified (principal) | CPT/HCPCS: 99203 ==

== ENCOUNTER 2022-06-14 12:44 | Outpatient (CLI) | payer MEDICARE, SELFPAY ==
--- NOTE | 2022-06-14 13:08 | XR_ITS ---
WS: [email or web address] SCREENING DEXA SCAN [employer] CLINICAL INFORMATION: POST MENOPAUSAL COMPARISON: None. FINDINGS: The L1-L4 bone mineral density measures 0.915 g/cm2. This corresponds to a T score score of -2.2 and Z score of -0.9. Left femoral neck bone mineral density measures 0.864 g/cm2. This corresponds to a T score of -1.1 an d Z score of -0.1. Right femoral neck bone mineral density measures 0.841 g/cm2. This corresponds to a T score -1.3of an d Z score of -0.3. Mean femoral neck bone mineral density measures 0.853 g/cm2. This corresponds to a T score of -1.2 an d Z score of -0.2. XR/XR DEXA axial skeleton* [id number] IMPRESSION: Osteopenia lumbar spine. Osteopenia femoral necks. Patient's FRAX calculated 10 year probability for major osteoporotic fracture i s 29.0 % and osteoporotic hip fracture is 2.3%.
--- NOTE | 2022-06-14 13:09 | MM_ITS ---
WS: [email or web address] BILATERAL 3D TOMOSYNTHESIS DIGITAL SCREENING MAMMOGRAPHY WITH CAD CLINICAL INFORMATION: screening mammogram HISTORY: Screening mammogram. No current complaints. COMPARISON: June 12, 2021 TECHNIQUE: Bilateral CC and MLO views. FINDINGS: Scattered fibroglandular densities bilaterally. No suspicious focal mass, asymmetry, calcifications, or architectural distortion. No evidence of malignancy. Incidental punctate calcifications. MM/[place] [id number] IMPRESSION: BI-RADS: 2-Benign FOLLOW UP: 1 Year Follow-up Recommend return to annual screening mammography.
== END 2022-06-14 12:45 | disposition home or self-care (01) ==
LOC: RAD 12:47
PROVIDERS: PCP Family Medicine; Visit Provider Family Medicine
DX: Z12.31 Encounter for screening mammogram for malignant neoplasm of breast (principal); Z78.0 Asymptomatic menopausal state; M85.89 Other specified disorders of bone density and structure, multiple sites
CPT/HCPCS: 77063; 77067; 77080

== ENCOUNTER → 2023-05-09 08:44 | Outpatient (BNVA) | payer MEDICARE, SELFPAY | PROVIDERS: PCP Family Medicine; Visit Provider Family Medicine Adult Medicine | DX: R39.9 Unspecified symptoms and signs involving the genitourinary system (principal) | CPT/HCPCS: 81000 ==

== ENCOUNTER → 2023-08-19 13:15 | Outpatient (BNVA) | payer MEDICARE, SELFPAY | PROVIDERS: PCP Family Medicine; Visit Provider Nurse Practitioner Women's Health | DX: Z01.419 Encounter for gynecological examination (general) (routine) without abnormal findings (principal); M81.0 Age-related osteoporosis without current pathological fracture | CPT/HCPCS: 87624 ==

== ENCOUNTER 2023-08-22 07:34 | Outpatient (CLI) | payer MEDICARE, SELFPAY ==
--- NOTE | 2023-08-22 08:00 | MM_ITS ---
WS: [email or web address] BILATERAL SCREENING DIGITAL TOMOSYNTHESIS MAMMOGRAM WITH CAD HISTORY: Z12.31 - Encounter for screening mammogram for malignant ... COMPARISON: 06/14/2022, 06/12/2021 Bilateral CC and MLO views with tomosynthesis and synthetic mammography submitted. Computer aided det ection analyzed. Breast composition: There are scattered areas of fibroglandular density. No suspicious masses, microc alcifications or architectural distortion. MM/[place] [id number] IMPRESSION: BI-RADS: 1-Negative FOLLOW UP: 1 Year Follow-up
== END 2023-08-22 07:35 | disposition home or self-care (01) ==
LOC: RAD 07:34
PROVIDERS: PCP Family Medicine; Visit Provider Nurse Practitioner Women's Health
DX: Z12.31 Encounter for screening mammogram for malignant neoplasm of breast (principal); R92.323 Mammographic fibroglandular density, bilateral breasts
CPT/HCPCS: 77063; 77067

== ENCOUNTER → 2024-06-03 11:04 | Outpatient (BNVA) | payer MEDICARE, SELFPAY | PROVIDERS: PCP Family Medicine; Visit Provider Family Medicine | DX: R00.2 Palpitations (principal); Z13.6 Encounter for screening for cardiovascular disorders; M81.0 Age-related osteoporosis without current pathological fracture | CPT/HCPCS: 85025 ==

== ENCOUNTER → 2024-06-04 09:30 | Outpatient (BNVA) | payer MEDICARE, SELFPAY | PROVIDERS: PCP Family Medicine; Visit Provider Family Medicine | DX: Z13.6 Encounter for screening for cardiovascular disorders (principal); R00.2 Palpitations; M81.0 Age-related osteoporosis without current pathological fracture | CPT/HCPCS: 80053; 80061; 82306; 82310; 83735; 83970; 84443; 85025 ==

== ENCOUNTER 2024-08-23 09:51 | Outpatient (CLI) | payer MEDICARE, SELFPAY ==
--- NOTE | 2024-08-23 10:00 | MM_ITS ---
WS: [email or web address] SCREENING DIGITAL TOMOSYNTHESIS MAMMOGRAM WITH CAD HISTORY: screening COMPARISON: 08/22/2023, 06/14/2022 Bilateral CC and MLO with tomosynthesis views submitted. Synthetic mammography reviewed. Computer aided detection analyzed. Breast composition: There are scattered areas of fibroglandular density. No suspicious masses, microcalcifications or architectural distortion. Benign calcifications. MM/MM scr BI tomosynthesis [id number] IMPRESSION: BI-RADS: 2 - Benign. FOLLOW UP: 1 Year Follow-up
== END 2024-08-23 09:52 | disposition home or self-care (01) ==
PROVIDERS: PCP Family Medicine; Visit Provider Family Medicine
DX: Z12.31 Encounter for screening mammogram for malignant neoplasm of breast (principal); R92.323 Mammographic fibroglandular density, bilateral breasts; R92.1 Mammographic calcification found on diagnostic imaging of breast
CPT/HCPCS: 77063; 77067

== ENCOUNTER 2024-12-20 08:25 | Emergency (ER) | payer MEDICARE, SELFPAY ==
[2024-12-20 08:37] VITALS: BP 115/71; PULSE 69; RESP 16; TEMP 36.7; O2SAT 99; BMI 26.8
--- NOTE | 2024-12-20 08:46 | XR_ITS ---
WS: [email or web address] Right wrist, 4 views including scaphoid view, 12/20/2024 Clinical Data: Trauma Comparison: None. Findings: No fractures or dislocations are seen. The carpal bones are intact. There is no soft tissue swelling. The distal radius and ulna are not remarkable. Scaphoid view is normal. XR/XR wrist RT w scaphoid [id number] Impression: Negative right wrist.
--- NOTE | 2024-12-20 08:46 | W.ED.EXTPRO ---
HPI - Extremity Problem General: Chief complaint: Extremity Injury, Upper Stated complaint: recent falls, R wrist pain Time Seen by Provider: 12/20/24 08:39 History of Present Illness: 61-year-old female presents emergency room complaining of right wrist pain. She fell 1 week ago while in the garden when she stumbled had some wrist pain since then then fell again this morning in exercise class landed on an outstretched right wrist has some pain and mild swelling denies any other injury. She states her wrist has been hurting continuously since the first fall and aggravated by the second fall this morning. She has what looks like an abrasion on the left side of her forehead but states that is from a skin tag that was burned off at dermatology late last week. Related Data Home Medications ?Medication ?Instructions ?Recorded ?Confirmed Forward PO 08/19/23 08/20/24 ascorbate calcium (vitamin C) 500 500 mg PO DAILY 08/19/23 08/20/24 mg tablet ascorbic acid (vitamin C) 1,000 mg 1 g PO Q6H 08/19/23 08/20/24 capsule ivermectin 6 mg tablet 6 mg PO 08/19/23 08/20/24 quercetin 500 mg capsule 1,000 mg PO .every other day 08/19/23 08/20/24 zinc acetate 25 mg (zinc) capsule 25 mg PO DAILY 08/19/23 08/20/24 (Galzin) calcium 300 mg-D3 25 mcg-magnesium tab PO 06/03/24 08/20/24 66 mg-K2 37.5 mcg-herbal tablet (Alive Calcium-Vitamin D3-K2) multivitamin 1 tab PO DAILY 06/03/24 08/20/24 Allergies Allergy/AdvReac Type Severity Reaction Status Date / Time olive extract Allergy ADR-Abdominal Verified 08/20/24 10:04 Pain Tetracyclines Allergy ADR-Gastrointestinal Verified 08/20/24 10:04 Upset Review of Systems Musc: Reports: joint pain PFSH ED PFSH: Medical History Osteopenia determined by dual energy x-ray photon absorptiometry (DEXA) scan of forearm 3.31.23 osteopenia, does not want meds No pertinent past medical history neghx: htn,dm,thryod,dvt/pe Surgical History Hx of colonoscopy 4..2017 normal; repeat 10 yrs History of bunionectomy R little toe History of surgery on upper extremity R humerus fracture surgery History of endometrial ablation Hx of tonsillectomy History of appendectomy Family History Father Hypertension Stroke Aortic aneurysm Family/Other CAD (coronary artery disease), Onset Age: 53 massive heart attack Hypertension Denies family history of Colon cancer Ovarian cancer Prostate cancer Diabetes Heart disease Hyperlipidemia Breast cancer Uterine cancer Thyroid disease Social History Smoking and tobacco/nicotine status: former use of tobacco/nicotine Quit status (tobacco/nicotine): has quit using Year quit tobacco: in her 20s; and little Alcohol intake: current Alcohol intake frequency: 0-2 Drinks per Day Alcohol type: hard liquor Substance/Drug Use: never Household members: spouse Marital status: Number of children: 0 Highest education level completed: Associate Degree: Academic Program Current occupational status: retired 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 neurovascularly intact no deformity no crepitus no significant swelling Neuro: SENSORIUM/ORIENTATION: Yes oriented to person, Yes oriented to place and Yes oriented to time Skin: COMMON NORMALS: no rashes or lesions noted GENERAL SKIN EXAM: no rashes or lesions noted Course Vital Signs: Vital signs: Vital Signs Temperature 98.1 F 12/20/24 08:37 Pulse Rate 69 12/20/24 08:37 Respiratory Rate 16 12/20/24 08:37 Blood Pressure 115/71 12/20/24 08:37 Pulse Oximetry 99 12/20/24 08:37 Oxygen Delivery Me thod Room Air 12/20/24 08:37 MDM - Extremity (Nontraumatic) Medical Decision Making X-ray of the wrist unremarkable no acute fractures noted. Will discharge patient home ice minimal activities. Patient states she does a lot of yoga would avoid that for a few days to the wrist to improve if she has any worsening or persistent symptoms recheck with her primary care doctor can use ibuprofen Tylenol as needed. Lab Data Radiology Impressions Wrist X-Ray 12/20/24 08:46 Impression: Negative right wrist. All radiology interpretation(s) finalized by discharge Discharge Plan Discharge Patient Disposition: Home Clinical Impression: Sprain of wrist, right Condition: Stable Prescriptions: No Action Galzin 25 mg (zinc) capsule 25 mg PO DAILY ascorbate calcium (vitamin C) 500 mg tablet 500 mg PO DAILY ascorbic acid (vitamin C) 1,000 mg capsule 1 g PO Q6H ivermectin 6 mg tablet 6 mg PO Rx Instructions: first day of each month and on the 15th of the month. 3 tablets every other day Forward PO quercetin 500 mg capsule 1,000 mg PO .every other day multivitamin Tablet 1 tab PO DAILY Alive Calcium-Vitamin D3-K2 300 mg-25 mcg- 66 mg-37.5 mcg tablet PO Discharge Orders: Discharge ED (Routine); Ordered 12/20/24 Ordered By: Dk Collazo Referrals: Shama Archer MD [Primary Care Provider, Family Practice] Discharge Diet: Usual diet Discharge Activity: Resume usual activity Patient Instructions: Opioid Safety, Pain Management, Patient Portal & Candy Instructions Activity Restrictions/Additional Instructions: Thank you for choosing [facility] for your healthcare needs today. It is very important that you follow up as instructed or that you return to the Emergency Department should you have concerns or if your condition changes or worsens in any way. Emergency department visits are focused on emergent conditions, in some cases you may require further evaluation on an outpatient basis. You are seen in the emergency room after a fall complaining of right wrist pain x-rays does not show any acute fractures. Suspect you sprained the wrist. Recommend you follow-up with your primary care doctor within the next 5 to 7 days if not improving. You can use Tylenol and ibuprofen as needed for discomfort. Apply ice to the wrist and elevate as you are able. (Please note that included in your discharge packet is information concerning opioid safety and pain management. This information is given to all patients were discharged from the ER regardless of their discharge diagnosis or the medicines they usually take or are prescribed.) Print Language: Italian Coding Level of Care Code ED Treater for Kody Watt
== END 2024-12-20 09:43 | disposition home or self-care (01) ==
PROVIDERS: Emergency Provider Family Medicine; PCP Family Medicine
DX: S63.501A Unspecified sprain of right wrist, initial encounter (principal); Z87.891 Personal history of nicotine dependence; W19.XXXA Unspecified fall, initial encounter
CPT/HCPCS: 73110; 99283